=== PATIENT | male | born 1935 | race Caucasian/White ===

== ENCOUNTER 2021-08-21 13:07 | Inpatient (IN) | payer MEDICARE, OTHER ==
[2021-08-21] MEDS ORDERED: Sodium Chloride 0.9% 10 ML Syringe FLUSH PRN (13:44)
--- NOTE | 2021-08-21 13:44 | CT ---
[id number] CT/CT Head Stroke Protocol EXAM: CT Head Stroke Protocol CLINICAL DATA: STROKE PROTOCOL COMPARISON STUDY: None FINDINGS: Area of hypodensity within the left frontal lobe with loss of sharma-white matter differentiation. No acute hemorrhage. Generalized parenchymal atrophy with scattered areas of nonspecific white matter disease, commonly seen as sequela of chronic microvascular ischemia. Soft tissues are unremarkable. Paranasal sinuses and mastoid air cells are clear. IMPRESSION: Area of hypodensity within the left frontal lobe. Findings are likely commercial representative of a subacute infarct. Underlying mass with associated edema is not excluded. MRI of the brain with contrast is recommended for further evaluation. Ebenezer Hall DO 08/21/21 [id number] Thank you for allowing us to participate in the care of your patient.
[2021-08-21 14:51] LABS: PTT,PARTIAL THROMBOPLSTIN TIME 29.9 SEC (22.8-31.4)
--- NOTE | 2021-08-21 14:57 | EDM.PDOC ---
ED HPI GENERAL MEDICAL PROBLEM - General Chief Complaint: Neuro Symptoms/Deficits Stated Complaint: STROKE SYMPTOMS Time Seen by Provider: 08/21/21 13:10 Source of Information: Reports: EMS, Family (daughter Laurel, telephone conversation) History Limitations: Reports: Altered Mental Status (confusion, expressive dysphagia) - History of Present Illness INITIAL COMMENTS - FREE TEXT/NARRATIVE: 85-year-old male is brought in by EMS at approximately 1307 today for evaluation for probable CVA. [employer] was dispatched after daughter made a call stating that her father did not answer the phone yesterday and talked with him today and was not able to complete sentences with word salad and confusion. EMS arrived at the patient's house where he was in the kitchen. He was confused with expressive dysphagia and was brought in to the ER for further evaluation. Daughter stated that she was able to talk to her father on Tuesday. He had stated that he had not felt good since Tuesday and thought he was coming down with a cold. She followed up with a phone call on with no response. Today when he called and was confused and was unable to complete sentences she notified the authorities. His past medical history is significant for hyperlipidemia, hypertension, BPH. He is a history of 1 pack a day for 35 years cigarettes. Drinking history from his chart was noted 20 drinks weekly, totaling 10 beers and 10 shots of whiskey per week. Patient's this past November. He lives at home alone at this time. EMS noticed that the house was in disarray with molded food on the stove. The patient was alert but confused. Onset: Unknown/Unsure Duration: Hour(s):, Day(s): Location: Reports: Generalized Quality: Reports: Other (expressive ) Severity: Moderate Improves with: Reports: None Worsens with: Reports: None Associated Symptoms: Reports: Confusion. 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 - Related Data Allergies Allergy/AdvReac Type Severity Reaction Status Date / Time No Known Allergies Allergy Verified 08/21/21 13:31 Home Meds: Home Meds Simvastatin 20 mg PO DAILY 08/21/21 [History] Tamsulosin HCl [Flomax] 0.4 mg PO DAILY 08/21/21 [History] lisinopriL [Lisinopril] 10 mg PO DAILY 08/21/21 [History] Past Medical History HEENT History: Reports: None Cardiovascular History: Reports: Hypertension Respiratory History: Reports: None Gastrointestinal History: Reports: None Genitourinary History: Reports: BPH Musculoskeletal History: Reports: Arthritis Neurological History: Reports: None Psychiatric History: Reports: None Endocrine/Metabolic History: Reports: None Hematologic History: Reports: None Immunologic History: Reports: None Oncologic (Cancer) History: Reports: None Dermatologic History: Reports: Eczema - Past Surgical History Head Surgeries/Procedures: Reports: None Social & Family History - Tobacco Use Tobacco Use Status *Q: Never Tobacco User - Caffeine Use Caffeine Use: Reports: None - Recreational Drug Use Recreational Drug Use: No ED ROS GENERAL - Review of Systems Review Of Systems: See Below Constitutional: Reports: No Symptoms HEENT: Reports: No Symptoms Respiratory: Denies: Shortness of Breath, Cough Cardiovascular: Reports: Blood Pressure Problem. Denies: Chest Pain, Dyspnea on Exertion, Edema Endocrine: Reports: No Symptoms GI/Abdominal: Reports: No Symptoms : Reports: No Symptoms Musculoskeletal: Reports: No Symptoms Skin: Reports: No Symptoms Neurological: Reports: Confusion, Trouble Speaking, Change in Speech. Denies: Headache, Numbness, Paresthesia, Seizure, Syncope Psychiatric: Reports: Agitation, Confusion Hematologic/Lymphatic: Reports: No Symptoms Immunologic: Reports: No Symptoms ED EXAM, NEURO - Physical Exam Exam: See Below Exam Limited By: Altered Mental Status General Appearance: Alert, WD/WN, No Apparent Distress Eye Exam: Bilateral Eye: EOMI, PERRL Ears: Normal Canal Nose: Normal Inspection Throat/Mouth: Normal Inspection, No Airway Compromise, Other (Word scramble) Head Exam: Atraumatic, Normocephalic Neck: Normal Inspection, Supple, Non-Tender, Full Range of Motion Respiratory/Chest: No Respiratory Distress, Lungs Clear, Normal Breath Sounds, No Accessory Muscle Use, Chest Non-Tender Cardiovascular: Normal Peripheral Pulses, Regular Rate, Rhythm GI/Abdominal: Normal Bowel Sounds, Soft, Non-Tender Neurological: Alert, No Motor/Sensory Deficits. No: Oriented x 3 (Patient is not oriented to person, time, place) Back Exam: Normal Inspection Extremities: Normal Inspection, Normal Range of Motion, Limited Range of Motion (Left shoulder) Psychiatric: Other (Mild agitation) Skin Exam: Warm, Dry, Intact, Normal Color, No Rash #1 Interpretation EKG Date: 08/21/21 Time: 13:21 Rhythm: NSR Rate (Beats/Min): 78 [place]: Normal P-Wave: Present QRS: RBBB ST-T: Normal QT: Normal Comparison: NA - No Prior EKG EKG Interpretation Comments: Normal sinus rhythm Right bundle branch block Abnormal ECG Course - Vital Signs Last Recorded V/S: Last Vital Signs Temp 97.6 F 08/21/21 13:10 Pulse 74 08/21/21 15:36 Resp 20 08/21/21 15:36 BP 133/98 H 08/21/21 15:36 Pulse Ox 100 08/21/21 15:36 - Orders/Labs/Meds Orders: Active Orders 24 hr Category Date Time Status Peripheral IV Care [RC] . DIRECTED Care 08/21/21 13:44 Active Nothing Per Oral Diet [DIET] Diet 08/21/21 Dinner Active CTA Neck W & W/O Contrast [Ang Neck] [CT] Stat Exams 08/21/21 14:22 Ordered CORONAVIRUS COVID-19 RAPID [MOLEC] Urgent Lab 08/21/21 16:16 Ordered CULTURE BLOOD [BC] Stat Lab 08/21/21 16:17 Ordered CULTURE BLOOD [BC] Stat Lab 08/21/21 16:17 Ordered LACTIC ACID [CHEM] Stat Lab 08/21/21 16:18 Ordered Sodium Chloride 0.9% [Normal Saline] 1,000 ml Med 08/21/21 15:30 Active IV .BOLUS Sodium Chloride 0.9% [Normal Saline] 50 ml Med 08/21/21 15:45 Active IV ASDIRECTED Sodium Chloride 0.9% [Saline Flush] Med 08/21/21 13:44 Active 10 ml FLUSH Q8HR PRN Blood Culture x2 Reflex Set [OM.PC] Stat Oth 08/21/21 16:17 Ordered Peripheral IV Insertion Adult [OM.PC] Routine Oth 08/21/21 13:44 Ordered EKG 12 Lead [EK] Stat Ther 08/21/21 13:43 Ordered Medication Orders Sodium Chloride (Normal Saline) 50 mls @ 200 mls/min IV ASDIRECTED JAVIER Last Admin: 08/21/21 15:35 Dose: 200 mls/min Documented by: ENDECAY Sodium Chloride (Normal Saline) 1,000 mls @ 150 mls/hr IV .BOLUS ONE Stop: 08/21/21 22:09 Last Admin: 08/21/21 15:44 Dose: 150 mls/hr Documented by: CADE Sodium Chloride (Sodium Chloride 0.9% 10 Ml Syringe) 10 ml FLUSH Q8HR PRN PRN Reason: keep vein open Labs: Laboratory Tests 08/21/21 08/21/21 08/21/21 Range/Units 13:30 13:30 14:25 WBC 23.32 H (5.00-10.00) 10^3/uL RBC 3.57 L (4.50-6.00) 10^6/uL Hgb 11.5 L (13.0-17.0) g/dL Hct 33.4 L (40.0-52.0) % MCV 93.6 H (82.0-92.0) fL MCH 32.2 H (27.0-31.0) pg MCHC 34.4 (32.0-36.0) g/dL RDW 13.0 (11.5-14.5) % Plt Count 460 H (150-400) 10^3/uL MPV 8.5 (7.4-10.4) fL Immature Gran % (Auto) 0.6 (0.0-5.0) % Neut % (Auto) 84.6 H (50.0-70.0) % Lymph % (Auto) 5.0 L (20.0-40.0) % [place] % (Auto) 9.5 H (2.0-8.0) % Eos % (Auto) 0.2 L (1.0-3.0) % Baso % (Auto) 0.1 (0.0-1.0) % Neut # (Auto) 19.73 H (2.50-7.00) 10^3/uL Lymph # (Auto) 1.17 (1.00-4.00) 10^3/uL [place] # (Auto) 2.22 H (0.10-0.80) 10^3/uL Eos # (Auto) 0.04 L (0.10-0.30) 10^3/uL Baso # (Auto) 0.03 (0.00-0.10) 10^3/uL Immature Gran # (Auto) 0.13 (0.00-0.50) 10^3/uL PT 12.6 H (9.2-11.2) SEC INR 1.3 H (0.9-1.1) APTT 29.9 (22.8-31.4) SEC Sodium 133 L (136-145) mmol/L Potassium 5.3 H (3.5-5.1) mmol/L Chloride 96 L (98-107) mmol/L Carbon Dioxide 21.0 (21.0-32.0) mmol/L Anion Gap 21.3 H (5-15) mmol/L BUN 35 H (7-18) mg/dL Creatinine 1.26 H (0.51-1.17) mg/dL Est Cr Clr Drug Dosing TNP Estimated GFR (MDRD) 55 mL/min Glucose 104 (70-140) mg/dL Calcium 9.5 (8.7-10.3) mg/dL Total Bilirubin 0.5 (0.2-1.0) mg/dL AST 27 (15-37) U/L ALT 60 (14-63) U/L Alkaline Phosphatase 215 H (46-116) U/L Troponin I High Sens 493.600 H* (0-76.000) pg/mL Total Protein 7.9 (6.4-8.2) g/dL Albumin 3.28 L (3.40-5.00) g/dL Ethyl Alcohol < 3 H (NOT DETECTED) mg/dL Meds: Medications Generic Name Dose Route Start Last Admin Trade Name Freq PRN Reason Stop Dose Admin Sodium Chloride 50 mls @ 200 mls/min 08/21/21 15:45 08/21/21 15:35 Normal Saline IV 200 mls/min ASDIRECTED JAVIER Administration Sodium Chloride 1,000 mls @ 150 mls/hr 08/21/21 15:30 08/21/21 15:44 Normal Saline IV 08/21/21 22:09 150 mls/hr .BOLUS ONE Administration Sodium Chloride 10 ml 08/21/21 13:44 Sodium Chloride 0.9% 10 Ml Syringe FLUSH Q8HR PRN keep vein open Discontinued Medications Generic Name Dose Route Start Last Admin Trade Name Freq PRN Reason Stop Dose Admin Aspirin 324 mg 08/21/21 15:43 08/21/21 15:44 Aspirin 81 Mg Tab.Chew PO 08/21/21 15:44 324 mg ONETIME ONE Administration Iopamidol 100 ml 08/21/21 15:34 08/21/21 15:35 Iopamidol 755 Mg/Ml 100 Ml Bottle IV 08/21/21 15:35 100 ml ONETIME ONE Administration - Radiology Interpretation Free Text/Narrative:: CT head stroke protocol Findings: Area of hypodensity within the left frontal lobe with loss of sharma-white matter differentiation. No acute hemorrhage. Generalized paronychial atrophy with scattered area of nonspecific white matter disease, commonly seen as sequela of chronic microvascular ischemia Soft tissues are unremarkable. Paraspinal sinuses and mastoid air cells are clear. Impression: Area of hypodensity within the left frontal lobe. Findings are likely event sales representative of a subacute infarct. Underlying mass with associated edema is not excluded. MRI of the brain with contrast is recommended for further evaluation. Chest PA and lateral Indication: Confusion/CVA/elevated WBC Discussion/impression: Scattered linear opacities in the bilateral mid and lower lungs. Appearance is nonspecific. There is clinical signs of infection, findings could represent developing pneumonia, including sequela of Covid 19. No pleural effusion or pneumothorax CT CTA head and neck: Discussion: See radiology report Impression: No large vessel occlusion in the brain. No carotid stenosis. No abnormal enhancement of the left frontal lobe paronychial hypodensity seen on CT from today. Findings on CT are most consistent with evolving subacute infarction. MRI of the brain with and without contrast is recommended. Abnormal subpleural or mediastinal left upper lobe paronychial opacity extending beyond the [id number] on this examination. CT examination of the chest is with or without is recommended. CT Results Date: 08/21/21 CT Results Time: 13:38 - Re-Assessments/Exams Free Text/Narrative Re-Assessment/Exam: 08/21/21 15:06 NIH stroke scale 8 Patient is alert, patient is less agitated, patient is able to follow commands, patient still has expressive dysphagia. Free Text/Narrative Re-Assessment/Exam: 08/21/[address]Mutgi Sommers [address] [place] [address], [address] and discussed the findings with physician. Recommendation for CTA of the head and neck. And continue with palliative care at this time. Free Text/Narrative Re-Assessment/Exam: 08/21/21 1440 Telephone call was made out to patient's family member daughter Laurel who lives in [place]. Discussion of findings on the CT were discussed with the daughter. She has a brother that lives near the area of [place] and will be arriving. We have discussed CODE STATUS which the patient has in his directive he is a DNR. 08/21/21 16:55 Patient is more responsive to questioning. He did get up abruptly on his own unfortunately had dislodged his IV and was bleeding on the floor and went to the bathroom. Nursing staff accompanied him back to the bed. Patient reports no increased pain discomfort no chest pain. Agitation is resolved. Departure - Departure Time of Disposition: 17:07 Disposition: Admitted As Inpatient 68 Condition: Fair Clinical Impression: Non-ST elevated myocardial infarction (non-STEMI), Neutrophilic leukocytosis CVA (cerebral vascular accident) Qualifiers: CVA mechanism: unspecified Qualified Code(s): I63.9 - Cerebral infarction, unspecified - Discharge Information Referrals: Carolyne Goyal MD [Primary Care Provider] - Forms: ED Department Discharge Sepsis Event Note (ED) - Focused Exam Vital Signs: Vital Signs Temp Pulse Resp BP Pulse Ox 08/21/21 15:36 74 20 133/98 H 100 08/21/21 13:10 97.6 F 78 16 158/96 H 100 - My Orders Last 24 Hours: My Active Orders 08/21/21 13:43 EKG 12 Lead [EK] Stat 08/21/21 13:44 Peripheral IV Care [RC] . DIRECTED Sodium Chloride 0.9% [Saline Flush] 10 ml FLUSH Q8HR PRN Peripheral IV Insertion Adult [OM.PC] Routine 08/21/21 14:22 CTA Neck W & W/O Contrast [Ang Neck] [CT] Stat 08/21/21 15:30 Sodium Chloride 0.9% [Normal Saline] 1,000 ml IV .BOLUS 08/21/21 15:45 Sodium Chloride 0.9% [Normal Saline] 50 ml IV ASDIRECTED 08/21/21 16:16 CORONAVIRUS COVID-19 RAPID [MOLEC] Urgent 08/21/21 16:17 CULTURE BLOOD [BC] Stat CULTURE BLOOD [BC] Stat Blood Culture x2 Reflex Set [OM.PC] Stat 08/21/21 16:18 LACTIC ACID [CHEM] Stat 08/21/21 Dinner Nothing Per Oral Diet [DIET] - Assessment/Plan Last 24 Hours: My Active Orders 08/21/21 13:43 EKG 12 Lead [EK] Stat 08/21/21 13:44 Peripheral IV Care [RC] . 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 Leukocytosis with left shift. Possibly developing pneumonia, including sequela of COVID-19. Critical troponin levels, non-ST elevated DC Plan: 1. Interventional neurology was consulted, [address] Recommendation for CTA head and neck. Continue with palliative care. 2. Patient and family desire noninvasive management for his CVA and elevated troponin.. 3. Patient will be admitted inpatient, telemetry for palliative care for his CVA, non-ST elevated DC, further work-up for leukocytosis with shift. 4. Lactic acid, UA, blood cultures pending. 5. Covid test pending. 6. Patient will likely need long-term retirement placement with possible hospice. 7. provider will take over patient's inpatient care and has been accepted.
[2021-08-21 15:29] LABS: ANION GAP 21.3 mmol/L (5-15); CHLORIDE,CL 96 mmol/L (98-107); SODIUM,NA 133 mmol/L (136-145)
[2021-08-21] MEDS ORDERED: Sodium Chloride 0.9% 1,000 ML IV ONE (15:30)
[2021-08-21] MEDS ORDERED: Iopamidol 755 Mg/ML 100 ML Bottle IV ONE (15:34)
[2021-08-21] MEDS ORDERED: Aspirin 81 MG Tab.Chew PO ONE (15:43)
[2021-08-21] MEDS ORDERED: Sodium Chloride 0.9% 50 ML IV SCH (15:45)
--- NOTE | 2021-08-21 15:46 | CT ---
[id number] CT/CTA Head Neck EXAM: CT angiogram head and neck INDICATION: CVA COMPARISON: CT from today at 1307 hours. DISCUSSION: Aortic arch: The partially imaged aortic arch is normal in caliber with a conventional branching morphology. Right carotid artery: Normal in caliber. No significant stenosis or other abnormality. Left carotid artery: Normal in caliber. No significant stenosis or other abnormality. Right vertebral artery: Normal in caliber. No significant stenosis or other abnormality. Left vertebral artery: Normal in caliber. No significant stenosis or other abnormality. Basilar artery: Normal in caliber. No significant stenosis or other abnormality. [place]: origin of the right posterior cerebral artery, normal variant. No large vessel occlusion in the brain. No high-grade stenosis or aneurysm. Dural sinuses, jugular veins and cerebral veins: Limited evaluation of the cerebral veins, dural sinuses and jugular veins is unremarkable. Brain parenchyma: No abnormal enhancement within area of parenchymal hypodensity in the left frontal lobe seen on noncontrast CT from today. Appearance is not consistent with a mass. of the left upper lobe extending beyond the field of view of this examination. Emphysematous changes in the lung apices. Neck soft tissues: Unremarkable. Osseous structures: Advanced changes of spondylosis throughout the cervical spine. Degenerative anterolisthesis at C4 over C5. IMPRESSION: No large vessel occlusion in the brain. No carotid stenosis. No abnormal enhancement of left frontal lobe parenchymal hypodensity seen on CT from today. Findings on CT are most consistent with evolving subacute infarction. MRI of the brain with and without contrast is recommended. Abnormal subpleural or mediastinal left upper lobe parenchymal opacity extending beyond the field of view of this examination. CT examination of the chest is with or without is recommended. Arnaud Devi MD 08/21/21 5101 Thank you for allowing us to participate in the care of your patient.
--- NOTE | 2021-08-21 16:23 | CR ---
[id number] RAD/RAD Chest PA And Lateral EXAM: RAD Chest PA And Lateral INDICATION: CONFUSION/CVA/ELEVATED WBC COMPARISON: None. DISCUSSION/IMPRESSION: Cardiomegaly and central vascular congestion. Scattered linear opacities in the bilateral mid and lower lungs. Appearance is nonspecific. If there are clinical signs of infection, findings could represent developing pneumonia, including sequela of COVID 19. No pleural effusion or pneumothorax. Arnaud Devi MD 08/21/21 3422 Thank you for allowing us to participate in the care of your patient.
--- NOTE | 2021-08-21 17:59 | PCM.HP.2 ---
H&P History of Present Illness - General Date of Service: 08/21/21 Admit Problem/Dx: Admission Diagnosis/Problem Admission Diagnosis/Problem CVA, Cerebrovascular accident - Related Data Allergies/Adverse Reactions: Allergies Allergy/AdvReac Type Severity Reaction Status Date / Time No Known Allergies Allergy Verified 08/21/21 13:31 Home Medications: Home Meds Simvastatin 20 mg PO DAILY 08/21/21 [History] Tamsulosin HCl [Flomax] 0.4 mg PO DAILY 08/21/21 [History] lisinopriL [Lisinopril] 10 mg PO DAILY 08/21/21 [History] Past Medical History HEENT History: Reports: None Cardiovascular History: Reports: Hypertension Respiratory History: Reports: None Gastrointestinal History: Reports: None Genitourinary History: Reports: BPH Musculoskeletal History: Reports: Arthritis Neurological History: Reports: None Psychiatric History: Reports: None Endocrine/Metabolic History: Reports: None Hematologic History: Reports: None Immunologic History: Reports: None Oncologic (Cancer) History: Reports: None Dermatologic History: Reports: Eczema - Past Surgical History Head Surgeries/Procedures: Reports: None Social & Family History - Tobacco Use Tobacco Use Status *Q: Never Tobacco User - Caffeine Use Caffeine Use: Reports: None - Recreational Drug Use Recreational Drug Use: No H&P Review of Systems - Review of Systems: Review Of Systems: See Below Free Text/Narrative: Difficulty obtaining complete ROS due to expressive aphasia General: Reports: Weakness HEENT: Reports: No Symptoms Pulmonary: Reports: Shortness of Breath, Cough Neurological: Reports: Trouble Speaking (expressive aphasia), Weakness (L upper extremity) Exam - Exam Exam: See Below - Vital Signs Vital Signs: Last Vital Signs Temp 97.5 F 08/21/21 17:55 Pulse 80 08/21/21 17:55 Resp 20 08/21/21 17:55 BP 151/77 H 08/21/21 17:55 Pulse Ox 98 08/21/21 17:55 - Exam Quality Assessment: Supplemental Oxygen General: Cooperative HEENT: Mucosa Moist & [place] Neck: Supple, Trachea Midline Lungs: Decreased Breath Sounds, Crackles, Rhonchi. No: Wheezing Cardiovascular: Regular Rate, Regular Rhythm. No: Systolic Murmur GI/Abdominal Exam: Normal Bowel Sounds, Soft, Non-Tender (Male) Exam: Deferred Rectal (Males) Exam: Deferred Extremities: Non-Tender, No Pedal Edema, Normal Capillary Refill, Other (left upper extremity weakness 4/5) Peripheral Pulses: 2+: Dorsalis Pedis (L), Dorsalis Pedis (R) Skin: Warm, Dry, Intact Neuro Extensive - Mental Status: Alert Neuro Extensive - Motor, Sensory, Reflexes: Expressive Aphasia - Patient Data Lab Results Last 24 hrs: Laboratory Results - last 24 hr 08/21/21 08/21/21 08/21/21 Range/Units 13:30 13:30 14:25 WBC 23.32 H (5.00-10.00) 10^3/uL RBC 3.57 L (4.50-6.00) 10^6/uL Hgb 11.5 L (13.0-17.0) g/dL Hct 33.4 L (40.0-52.0) % MCV 93.6 H (82.0-92.0) fL MCH 32.2 H (27.0-31.0) pg MCHC 34.4 (32.0-36.0) g/dL RDW 13.0 (11.5-14.5) % Plt Count 460 H (150-400) 10^3/uL MPV 8.5 (7.4-10.4) fL Immature Gran % (Auto) 0.6 (0.0-5.0) % Neut % (Auto) 84.6 H (50.0-70.0) % Lymph % (Auto) 5.0 L (20.0-40.0) % Yell % (Auto) 9.5 H (2.0-8.0) % Eos % (Auto) 0.2 L (1.0-3.0) % Baso % (Auto) 0.1 (0.0-1.0) % Neut # (Auto) 19.73 H (2.50-7.00) 10^3/uL Lymph # (Auto) 1.17 (1.00-4.00) 10^3/uL Yell # (Auto) 2.22 H (0.10-0.80) 10^3/uL Eos # (Auto) 0.04 L (0.10-0.30) 10^3/uL Baso # (Auto) 0.03 (0.00-0.10) 10^3/uL Immature Gran # (Auto) 0.13 (0.00-0.50) 10^3/uL PT 12.6 H (9.2-11.2) SEC INR 1.3 H (0.9-1.1) APTT 29.9 (22.8-31.4) SEC Sodium 133 L (136-145) mmol/L Potassium 5.3 H (3.5-5.1) mmol/L Chloride 96 L (98-107) mmol/L Carbon Dioxide 21.0 (21.0-32.0) mmol/L Anion Gap 21.3 H (5-15) mmol/L BUN 35 H (7-18) mg/dL Creatinine 1.26 H (0.51-1.17) mg/dL Est Cr Clr Drug Dosing TNP Estimated GFR (MDRD) 55 mL/min Glucose 104 (70-140) mg/dL Lactic Acid (0.4-2.0) mmol/L Calcium 9.5 (8.7-10.3) mg/dL Total Bilirubin 0.5 (0.2-1.0) mg/dL AST 27 (15-37) U/L ALT 60 (14-63) U/L Alkaline Phosphatase 215 H (46-116) U/L Troponin I High Sens 493.600 H* (0-76.000) pg/mL Total Protein 7.9 (6.4-8.2) g/dL Albumin 3.28 L (3.40-5.00) g/dL Ethyl Alcohol < 3 H (NOT DETECTED) mg/dL SARS CoV-2 RNA Rapid BRUNILDA (NEGATIVE) 08/21/21 08/21/21 Range/Units 16:40 16:50 WBC (5.00-10.00) 10^3/uL RBC (4.50-6.00) 10^6/uL Hgb (13.0-17.0) g/dL Hct (40.0-52.0) % MCV (82.0-92.0) fL MCH (27.0-31.0) pg MCHC (32.0-36.0) g/dL RDW (11.5-14.5) % Plt Count (150-400) 10^3/uL MPV (7.4-10.4) fL Immature Gran % (Auto) (0.0-5.0) % Neut % (Auto) (50.0-70.0) % Lymph % (Auto) (20.0-40.0) % Yell % (Auto) (2.0-8.0) % Eos % (Auto) (1.0-3.0) % Baso % (Auto) (0.0-1.0) % Neut # (Auto) (2.50-7.00) 10^3/uL Lymph # (Auto) (1.00-4.00) 10^3/uL Yell # (Auto) (0.10-0.80) 10^3/uL Eos # (Auto) (0.10-0.30) 10^3/uL Baso # (Auto) (0.00-0.10) 10^3/uL Immature Gran # (Auto) (0.00-0.50) 10^3/uL PT (9.2-11.2) SEC INR (0.9-1.1) APTT (22.8-31.4) SEC Sodium (136-145) mmol/L Potassium (3.5-5.1) mmol/L Chloride (98-107) mmol/L Carbon Dioxide (21.0-32.0) mmol/L Anion Gap (5-15) mmol/L BUN (7-18) mg/dL Creatinine (0.51-1.17) mg/dL Est Cr Clr Drug Dosing Estimated GFR (MDRD) mL/min Glucose (70-140) mg/dL Lactic Acid 2.2 H (0.4-2.0) mmol/L Calcium (8.7-10.3) mg/dL Total Bilirubin (0.2-1.0) mg/dL AST (15-37) U/L ALT (14-63) U/L Alkaline Phosphatase (46-116) U/L Troponin I High Sens (0-76.000) pg/mL Total Protein (6.4-8.2) g/dL Albumin (3.40-5.00) g/dL Ethyl Alcohol (NOT DETECTED) mg/dL SARS CoV-2 RNA Rapid BRUNILDA Negative (NEGATIVE) Result Diagrams: 08/21/21 13:30 08/21/21 13:30 Sepsis Event Note - Focused Exam Vital Signs: Vital Signs Temp Pulse Resp BP Pulse Ox Pulse Ox 08/21/21 17:55 97.5 F 80 20 151/77 H 98 08/21/21 17:16 98.4 F 80 20 161/95 H 97 08/21/21 17:12 80 20 154/91 H 96 08/21/21 17:10 98 08/21/21 16:00 71 18 97 08/21/21 15:36 74 20 133/98 H 100 08/21/21 13:10 97.6 F 78 16 158/96 H 100 Problem List Initiated/Reviewed/Updated: Yes Orders Last 24hrs: Active Orders 24 hr Category Date Time Status Patient Status [ADT] Routine ADT 08/21/21 17:10 Active Oxygen Therapy [RC] PRN Care 08/21/21 17:10 Active Peripheral IV Care [RC] . DIRECTED Care 08/21/21 13:44 Active VTE/DVT Education [RC] PER UNIT ROUTINE Care 08/21/21 17:10 Active Vital Signs [RC] Q4H Care 08/21/21 17:10 Active Nothing Per Oral Diet [DIET] Diet 08/21/21 Dinner Active CTA Neck W & W/O Contrast [Ang Neck] [CT] Stat Exams 08/21/21 14:22 Ordered CULTURE BLOOD [BC] Stat Lab 08/21/21 16:40 Received CULTURE BLOOD [BC] Stat Lab 08/21/21 16:50 Received Sodium Chloride 0.9% [Normal Saline] 1,000 ml Med 08/21/21 15:30 Active IV .BOLUS Sodium Chloride 0.9% [Normal Saline] 50 ml Med 08/21/21 15:45 Active IV ASDIRECTED Sodium Chloride 0.9% [Saline Flush] Med 08/21/21 13:44 Active 10 ml FLUSH Q8HR PRN Blood Culture x2 Reflex Set [OM.PC] Stat Oth 08/21/21 16:17 Ordered Peripheral IV Insertion Adult [OM.PC] Routine Oth 08/21/21 13:44 Ordered Resuscitation Status Routine Resus Stat 08/21/21 17:10 Ordered EKG 12 Lead [EK] Stat Ther 08/21/21 13:43 Ordered Medication Orders Sodium Chloride (Normal Saline) 50 mls @ 200 mls/min IV ASDIRECTED JAVIER Last Admin: 08/21/21 15:35 Dose: 200 mls/min Documented by: SONIA Sodium Chloride (Normal Saline) 1,000 mls @ 150 mls/hr IV .BOLUS ONE Stop: 08/21/21 22:09 Last Admin: 08/21/21 15:44 Dose: 150 mls/hr Documented by: CADE Sodium Chloride (Sodium Chloride 0.9% 10 Ml Syringe) 10 ml FLUSH Q8HR PRN PRN Reason: keep vein open Assessment/Plan Comment:: HPI summary: Arthur is an 85yM patient brought to the ER today per EMS after highway patrol was dispatched to check on patient after his daughter had called him from [place] and reported patient was confused, unable to complete sentences with word salad and expressive aphasia. Daughter reported patient had complained of cold symptoms on Tuesday (08/17/21). Patient has 35 pack year history of smoking and drinks 20 alcoholic beverages on a weekly basis. Of note, EMS reported that the house was in disarray and moldy food was found on the stove. Patient's in November,. ED course: Patient confused, expressive aphasia and L sided weakness. NIH stroke scale = 8. WBC 23k, neutrophils 84.6%, Na 133, K 5.3, BUN 35, Creatinine 1.26, Alk phos 215. Trop 493. Lactic acid 2.2. CXR: cardiomegaly, vascular congestion; scattered linear opacities of bilateral mid, lower lungs suggestive of developing pneumonia. EKG: NSR w RBBB, no ST elevation. ASA 324mg given in ER. IV fluids started at 150ml/hr. [facility] neurology recommended palliative care for patient, declined admission. Hospital course: 08/21/21: Patient states "treat me" when clarifying code status for antibiotics, IV fluids versus comfort care. Expressive aphasia continues, mild left arm weakness. Vitals stable. Will trend troponin tonight. Initiating IV antibiotics for pneumonia. Tolerating thickened liquids and taking pills without difficulty. Hospitalization problems and plan: # NSTEMI - initial troponin 493; cardiomegaly/vascular congestion on CXR will obtain BNP. No echo on file. - Repeat troponin this evening 413; repeat at 2300 - Metoprolol 12.5mg PO daily - lovenox 60mg subq BID - BNP 171 this evening - IV fluid rate decreased from 150ml/hr to 50ml/hr - Oxygen 2 LPM NC for comfort - Cardiac monitoring # CVA - Head CT/CTA: Area of hypodensity L anterior frontal lobe with loss of white matter differentiation suggestive of subacute infarct; non-specific white matter disease - chronic microvascular ischemia - Allow for permissive hypertension - Thickened liquids - PT/OT evaluation and treatment # Pneumonia - WBC 23k, (84.6% neutrophils); CXR indicates scattered, linear opacities of the bilateral mid, lower lungs # Lactic acidosis - 2.2 in ER - Start levaquin 750mg IV daily - BC x 2 pending - Repeat lactic acid at 2300 - CBC in am Chronic, stable conditions: # Hypertension - on lisinopril 10mg (hold) # Hyperlipidemia - continue simvastatin 20mg PO # Benign prostatic hypertrophy - continue flomax 0.4mg PO daily # Tobacco dependence Hospitalization details: # FEN: NS 50ml/hr, stable electrolytes, thickened liquids # PPX: lovenox 60mg subq BID # Code status: DNR/DNI # Emergency contact: SonArnaud - updated at bedside this evening, informed him his father has three major medical concerns at this time and we will do the best we can to treat them. Condition rather guarded at this time. # Disposition: I anticipate > 2 midnights for treatment of pneumonia, NSTEMI and CVA. Patient admitted to inpatient status. Anticipate patient will likely need SNF upon discharge, will consult social insurance adviser for discharge planning, anticipate PT/OT eval on Tuesday08/24/21. - Mortality Measure Prognosis:: Poor (CVA, NSTEMI, Pneumonia)
[2021-08-21] MEDS ORDERED: Levofloxacin/Dextrose 5%-Water 500 MG in Premix Bag 1 BAG IV ONE (18:15)
[2021-08-21] MEDS: Metoprolol Succinate 25 MG Tab.ER PO SCH (19:17)
[2021-08-21] MEDS: Enoxaparin 60 MG/0.6 ML Syringe SUBCUT SCH (19:17)
[2021-08-21] MEDS ORDERED: Levofloxacin/Dextrose 5%-Water 250 MG in Premix Bag 1 BAG IV ONE (19:30)
[2021-08-21] MEDS: Tamsulosin 0.4 MG Cap.ER PO SCH (21:30)
[2021-08-21] MEDS: Simvastatin 20 MG Tab PO SCH (21:30)
[2021-08-22] MEDS: Enoxaparin 60 MG/0.6 ML Syringe SUBCUT SCH ×2 (06:20→17:45)
[2021-08-22] MEDS: Sodium Chloride 0.9% 1,000 ML IV SCH (07:17)
[2021-08-22 08:27] LABS: CHLORIDE,CL 103 mmol/L (98-107); SODIUM,NA 132 mmol/L (136-145)
[2021-08-22] MEDS: Metoprolol Succinate 25 MG Tab.ER PO SCH (08:43)
--- NOTE | 2021-08-22 10:24 | PCM.PN ---
- General Info Date of Service: 08/22/21 Subjective Update: Expressive aphasia continues, patient able to answer yes, no and some short phrases at times. Functional Status: Reports: Pain Controlled, Tolerating Diet (thickened liquids, pudding, cream of wheat), Urinating. Denies: New Symptoms - Patient Data Vitals - Most Recent: Last Vital Signs Temp 97.9 F 08/22/21 06:25 Pulse 89 08/22/21 08:43 Resp 24 H 08/22/21 06:25 BP 137/76 08/22/21 08:43 Pulse Ox 95 08/22/21 06:25 Weight - Most Recent: 139 lb 6.4 oz I&O - Last 24 Hours: Intake & Output 08/21/21 08/22/21 08/22/21 22:59 06:59 14:59 Intake Total 406 722 Output Total 0 250 Balance 406 472 Lab Results Last 24 Hours: Laboratory Results - last 24 hr 08/21/21 08/21/21 08/21/21 Range/Units 13:30 13:30 14:25 WBC 23.32 H (5.00-10.00) 10^3/uL RBC 3.57 L (4.50-6.00) 10^6/uL Hgb 11.5 L (13.0-17.0) g/dL Hct 33.4 L (40.0-52.0) % MCV 93.6 H (82.0-92.0) fL MCH 32.2 H (27.0-31.0) pg MCHC 34.4 (32.0-36.0) g/dL RDW 13.0 (11.5-14.5) % Plt Count 460 H (150-400) 10^3/uL MPV 8.5 (7.4-10.4) fL Immature Gran % (Auto) 0.6 (0.0-5.0) % Neut % (Auto) 84.6 H (50.0-70.0) % Lymph % (Auto) 5.0 L (20.0-40.0) % [place] % (Auto) 9.5 H (2.0-8.0) % Eos % (Auto) 0.2 L (1.0-3.0) % Baso % (Auto) 0.1 (0.0-1.0) % Neut # (Auto) 19.73 H (2.50-7.00) 10^3/uL Lymph # (Auto) 1.17 (1.00-4.00) 10^3/uL [place] # (Auto) 2.22 H (0.10-0.80) 10^3/uL Eos # (Auto) 0.04 L (0.10-0.30) 10^3/uL Baso # (Auto) 0.03 (0.00-0.10) 10^3/uL Immature Gran # (Auto) 0.13 (0.00-0.50) 10^3/uL PT 12.6 H (9.2-11.2) SEC INR 1.3 H (0.9-1.1) APTT 29.9 (22.8-31.4) SEC Sodium 133 L (136-145) mmol/L Potassium 5.3 H (3.5-5.1) mmol/L Chloride 96 L (98-107) mmol/L Carbon Dioxide 21.0 (21.0-32.0) mmol/L Anion Gap 21.3 H (5-15) mmol/L BUN 35 H (7-18) mg/dL Creatinine 1.26 H (0.51-1.17) mg/dL Est Cr Clr Drug Dosing TNP Estimated GFR (MDRD) 55 mL/min Glucose 104 (70-140) mg/dL Lactic Acid (0.4-2.0) mmol/L Calcium 9.5 (8.7-10.3) mg/dL Total Bilirubin 0.5 (0.2-1.0) mg/dL AST 27 (15-37) U/L ALT 60 (14-63) U/L Alkaline Phosphatase 215 H (46-116) U/L Troponin I High Sens 493.600 H* (0-76.000) pg/mL B-Natriuretic Peptide (0-100) pg/mL Total Protein 7.9 (6.4-8.2) g/dL Albumin 3.28 L (3.40-5.00) g/dL Ethyl Alcohol < 3 H (NOT DETECTED) mg/dL SARS CoV-2 RNA Rapid BRUNILDA (NEGATIVE) 08/21/21 08/21/21 08/21/21 Range/Units 16:40 16:50 18:35 WBC (5.00-10.00) 10^3/uL RBC (4.50-6.00) 10^6/uL Hgb (13.0-17.0) g/dL Hct (40.0-52.0) % MCV (82.0-92.0) fL MCH (27.0-31.0) pg MCHC (32.0-36.0) g/dL RDW (11.5-14.5) % Plt Count (150-400) 10^3/uL MPV (7.4-10.4) fL Immature Gran % (Auto) (0.0-5.0) % Neut % (Auto) (50.0-70.0) % Lymph % (Auto) (20.0-40.0) % [place] % (Auto) (2.0-8.0) % Eos % (Auto) (1.0-3.0) % Baso % (Auto) (0.0-1.0) % Neut # (Auto) (2.50-7.00) 10^3/uL Lymph # (Auto) (1.00-4.00) 10^3/uL [place] # (Auto) (0.10-0.80) 10^3/uL Eos # (Auto) (0.10-0.30) 10^3/uL Baso # (Auto) (0.00-0.10) 10^3/uL Immature Gran # (Auto) (0.00-0.50) 10^3/uL PT (9.2-11.2) SEC INR (0.9-1.1) APTT (22.8-31.4) SEC Sodium (136-145) mmol/L Potassium (3.5-5.1) mmol/L Chloride (98-107) mmol/L Carbon Dioxide (21.0-32.0) mmol/L Anion Gap (5-15) mmol/L BUN (7-18) mg/dL Creatinine (0.51-1.17) mg/dL Est Cr Clr Drug Dosing Estimated GFR (MDRD) mL/min Glucose (70-140) mg/dL Lactic Acid 2.2 H (0.4-2.0) mmol/L Calcium (8.7-10.3) mg/dL Total Bilirubin (0.2-1.0) mg/dL AST (15-37) U/L ALT (14-63) U/L Alkaline Phosphatase (46-116) U/L Troponin I High Sens (0-76.000) pg/mL B-Natriuretic Peptide 171 H (0-100) pg/mL Total Protein (6.4-8.2) g/dL Albumin (3.40-5.00) g/dL Ethyl Alcohol (NOT DETECTED) mg/dL SARS CoV-2 RNA Rapid BRUNILDA Negative (NEGATIVE) 08/21/21 08/21/21 08/21/21 Range/Units 18:35 22:55 22:55 WBC (5.00-10.00) 10^3/uL RBC (4.50-6.00) 10^6/uL Hgb (13.0-17.0) g/dL Hct (40.0-52.0) % MCV (82.0-92.0) fL MCH (27.0-31.0) pg MCHC (32.0-36.0) g/dL RDW (11.5-14.5) % Plt Count (150-400) 10^3/uL MPV (7.4-10.4) fL Immature Gran % (Auto) (0.0-5.0) % Neut % (Auto) (50.0-70.0) % Lymph % (Auto) (20.0-40.0) % [place] % (Auto) (2.0-8.0) % Eos % (Auto) (1.0-3.0) % Baso % (Auto) (0.0-1.0) % Neut # (Auto) (2.50-7.00) 10^3/uL Lymph # (Auto) (1.00-4.00) 10^3/uL [place] # (Auto) (0.10-0.80) 10^3/uL Eos # (Auto) (0.10-0.30) 10^3/uL Baso # (Auto) (0.00-0.10) 10^3/uL Immature Gran # (Auto) (0.00-0.50) 10^3/uL PT (9.2-11.2) SEC INR (0.9-1.1) APTT (22.8-31.4) SEC Sodium (136-145) mmol/L Potassium (3.5-5.1) mmol/L Chloride (98-107) mmol/L Carbon Dioxide (21.0-32.0) mmol/L Anion Gap (5-15) mmol/L BUN (7-18) mg/dL Creatinine (0.51-1.17) mg/dL Est Cr Clr Drug Dosing Estimated GFR (MDRD) mL/min Glucose (70-140) mg/dL Lactic Acid 0.7 (0.4-2.0) mmol/L Calcium (8.7-10.3) mg/dL Total Bilirubin (0.2-1.0) mg/dL AST (15-37) U/L ALT (14-63) U/L Alkaline Phosphatase (46-116) U/L Troponin I High Sens 413.300 H* 339.200 H* (0-76.000) pg/mL B-Natriuretic Peptide (0-100) pg/mL Total Protein (6.4-8.2) g/dL Albumin (3.40-5.00) g/dL Ethyl Alcohol (NOT DETECTED) mg/dL SARS CoV-2 RNA Rapid BRUNILDA (NEGATIVE) 08/22/21 08/22/21 Range/Units 07:20 07:20 WBC 15.17 H (5.00-10.00) 10^3/uL RBC 3.07 L (4.50-6.00) 10^6/uL Hgb 9.7 L D (13.0-17.0) g/dL Hct 28.9 L (40.0-52.0) % MCV 94.1 H (82.0-92.0) fL MCH 31.6 H (27.0-31.0) pg MCHC 33.6 (32.0-36.0) g/dL RDW 13.2 (11.5-14.5) % Plt Count 440 H (150-400) 10^3/uL MPV 8.6 (7.4-10.4) fL Immature Gran % (Auto) 0.5 (0.0-5.0) % Neut % (Auto) 83.8 H (50.0-70.0) % Lymph % (Auto) 4.2 L (20.0-40.0) % [place] % (Auto) 11.1 H (2.0-8.0) % Eos % (Auto) 0.2 L (1.0-3.0) % Baso % (Auto) 0.2 (0.0-1.0) % Neut # (Auto) 12.71 H (2.50-7.00) 10^3/uL Lymph # (Auto) 0.64 L (1.00-4.00) 10^3/uL [place] # (Auto) 1.68 H (0.10-0.80) 10^3/uL Eos # (Auto) 0.03 L (0.10-0.30) 10^3/uL Baso # (Auto) 0.03 (0.00-0.10) 10^3/uL Immature Gran # (Auto) 0.08 (0.00-0.50) 10^3/uL PT (9.2-11.2) SEC INR (0.9-1.1) APTT (22.8-31.4) SEC Sodium 132 L (136-145) mmol/L Potassium 4.9 (3.5-5.1) mmol/L Chloride 103 (98-107) mmol/L Carbon Dioxide 18.9 L (21.0-32.0) mmol/L Anion Gap 15.0 (5-15) mmol/L BUN 29 H (7-18) mg/dL Creatinine 1.04 (0.51-1.17) mg/dL Est Cr Clr Drug Dosing 48.13 Estimated GFR (MDRD) > 60 mL/min Glucose 90 (70-140) mg/dL Lactic Acid (0.4-2.0) mmol/L Calcium 8.5 L (8.7-10.3) mg/dL Total Bilirubin 0.6 (0.2-1.0) mg/dL AST 23 (15-37) U/L ALT 49 (14-63) U/L Alkaline Phosphatase 181 H (46-116) U/L Troponin I High Sens (0-76.000) pg/mL B-Natriuretic Peptide (0-100) pg/mL Total Protein 6.5 (6.4-8.2) g/dL Albumin 2.58 L (3.40-5.00) g/dL Ethyl Alcohol (NOT DETECTED) mg/dL SARS CoV-2 RNA Rapid BRUNILDA (NEGATIVE) Med Orders - Current: Current Medications Enoxaparin Sodium (Enoxaparin 60 Mg/0.6 Ml Syringe) 60 mg SUBCUT Q12H [facility] Last Admin: 08/22/21 06:20 Dose: 60 mg Documented by: Sodium Chloride (Normal Saline) 1,000 mls @ 50 mls/hr IV ASDIRECTED [facility] Last Admin: 08/22/21 07:17 Dose: 50 mls/hr Documented by: Levofloxacin/Dextrose 500 mg/ (Premix) 100 mls @ 100 mls/hr IV Q48H JAVIER Levofloxacin/Dextrose 250 mg/ (Premix) 50 mls @ 50 mls/hr IV Q48H JAVIER Metoprolol Succinate (Metoprolol Succinate 25 Mg Tab.Er) 12.5 mg PO DAILY [facility] Last Admin: 08/22/21 08:43 Dose: 12.5 mg Documented by: Simvastatin (Simvastatin 20 Mg Tab) 20 mg PO BEDTIME [facility] Last Admin: 08/21/21 21:30 Dose: 20 mg Documented by: Sodium Chloride (Sodium Chloride 0.9% 10 Ml Syringe) 10 ml FLUSH Q8HR PRN PRN Reason: keep vein open Tamsulosin HCl (Tamsulosin 0.4 Mg Cap.Er) 0.4 mg PO BEDTIME [facility] Last Admin: 08/21/21 21:30 Dose: 0.4 mg Documented by: Discontinued Medications Aspirin (Aspirin 81 Mg Tab.Chew) 324 mg PO ONETIME ONE Stop: 08/21/21 15:44 Last Admin: 08/21/21 15:44 Dose: 324 mg Documented by: Sodium Chloride (Normal Saline) 50 mls @ 200 mls/min IV ASDIRECTED [facility] Last Admin: 08/21/21 15:35 Dose: 200 mls/min Documented by: Sodium Chloride (Normal Saline) 1,000 mls @ 150 mls/hr IV .BOLUS ONE Stop: 08/21/21 22:09 Last Infusion: 08/21/21 20:30 Dose: 50 mls/hr Documented by: Levofloxacin/Dextrose 250 mg/ (Premix) 50 mls @ 50 mls/hr IV Q24H JAVIER Levofloxacin/Dextrose 500 mg/ (Premix) 100 mls @ 100 mls/hr IV NOW ONE Stop: 08/21/21 19:14 Last Admin: 08/21/21 19:14 Dose: 100 mls/hr Documented by: Levofloxacin/Dextrose 250 mg/ (Premix) 50 mls @ 50 mls/hr IV ONETIME ONE Stop: 08/21/21 20:29 Last Admin: 08/21/21 20:31 Dose: 50 mls/hr Documented by: Iopamidol (Iopamidol 755 Mg/Ml 100 Ml Bottle) 100 ml IV ONETIME ONE Stop: 08/21/21 15:35 Last Admin: 08/21/21 15:35 Dose: 100 ml Documented by: - Exam Quality Assessment: DVT Prophylaxis. No: Supplemental Oxygen, Urine Catheter General: Alert, Cooperative, No Acute Distress HEENT: Pupils Equal, Pupils Reactive, Mucous Membr. Moist/[place] Neck: Supple Lungs: Decreased Breath Sounds, Crackles (fine). No: Rhonchi, Wheezing Cardiovascular: Regular Rate, Regular Rhythm, No Murmurs GI/Abdominal Exam: Normal Bowel Sounds, Soft, Non-Tender, No Distention (Male) Exam: Deferred Back Exam: Normal Inspection Extremities: Normal Inspection, Non-Tender, No Pedal Edema, Normal Capillary Refill, Other (Left arm weakness, improved from last night) Peripheral Pulses: 2+: Dorsalis Pedis (L), Dorsalis Pedis (R) Skin: Warm, Dry, Intact, Other (bruising to upper extremtites) Neurological: No New Focal Deficit, Strength Equal Bilateral. No: Normal Speech Psy/Mental Status: Alert - Patient Data Lab Results Last 24 hrs: Laboratory Results - last 24 hr 08/21/21 08/21/21 08/21/21 Range/Units 13:30 13:30 14:25 WBC 23.32 H (5.00-10.00) 10^3/uL RBC 3.57 L (4.50-6.00) 10^6/uL Hgb 11.5 L (13.0-17.0) g/dL Hct 33.4 L (40.0-52.0) % MCV 93.6 H (82.0-92.0) fL MCH 32.2 H (27.0-31.0) pg MCHC 34.4 (32.0-36.0) g/dL RDW 13.0 (11.5-14.5) % Plt Count 460 H (150-400) 10^3/uL MPV 8.5 (7.4-10.4) fL Immature Gran % (Auto) 0.6 (0.0-5.0) % Neut % (Auto) 84.6 H (50.0-70.0) % Lymph % (Auto) 5.0 L (20.0-40.0) % [place] % (Auto) 9.5 H (2.0-8.0) % Eos % (Auto) 0.2 L (1.0-3.0) % Baso % (Auto) 0.1 (0.0-1.0) % Neut # (Auto) 19.73 H (2.50-7.00) 10^3/uL Lymph # (Auto) 1.17 (1.00-4.00) 10^3/uL [place] # (Auto) 2.22 H (0.10-0.80) 10^3/uL Eos # (Auto) 0.04 L (0.10-0.30) 10^3/uL Baso # (Auto) 0.03 (0.00-0.10) 10^3/uL Immature Gran # (Auto) 0.13 (0.00-0.50) 10^3/uL PT 12.6 H (9.2-11.2) SEC INR 1.3 H (0.9-1.1) APTT 29.9 (22.8-31.4) SEC Sodium 133 L (136-145) mmol/L Potassium 5.3 H (3.5-5.1) mmol/L Chloride 96 L (98-107) mmol/L Carbon Dioxide 21.0 (21.0-32.0) mmol/L Anion Gap 21.3 H (5-15) mmol/L BUN 35 H (7-18) mg/dL Creatinine 1.26 H (0.51-1.17) mg/dL Est Cr Clr Drug Dosing TNP Estimated GFR (MDRD) 55 mL/min Glucose 104 (70-140) mg/dL Lactic Acid (0.4-2.0) mmol/L Calcium 9.5 (8.7-10.3) mg/dL Total Bilirubin 0.5 (0.2-1.0) mg/dL AST 27 (15-37) U/L ALT 60 (14-63) U/L Alkaline Phosphatase 215 H (46-116) U/L Troponin I High Sens 493.600 H* (0-76.000) pg/mL B-Natriuretic Peptide (0-100) pg/mL Total Protein 7.9 (6.4-8.2) g/dL Albumin 3.28 L (3.40-5.00) g/dL Ethyl Alcohol < 3 H (NOT DETECTED) mg/dL SARS CoV-2 RNA Rapid BRUNILDA (NEGATIVE) 08/21/21 08/21/21 08/21/21 Range/Units 16:40 16:50 18:35 WBC (5.00-10.00) 10^3/uL RBC (4.50-6.00) 10^6/uL Hgb (13.0-17.0) g/dL Hct (40.0-52.0) % MCV (82.0-92.0) fL MCH (27.0-31.0) pg MCHC (32.0-36.0) g/dL RDW (11.5-14.5) % Plt Count (150-400) 10^3/uL MPV (7.4-10.4) fL Immature Gran % (Auto) (0.0-5.0) % Neut % (Auto) (50.0-70.0) % Lymph % (Auto) (20.0-40.0) % [place] % (Auto) (2.0-8.0) % Eos % (Auto) (1.0-3.0) % Baso % (Auto) (0.0-1.0) % Neut # (Auto) (2.50-7.00) 10^3/uL Lymph # (Auto) (1.00-4.00) 10^3/uL [place] # (Auto) (0.10-0.80) 10^3/uL Eos # (Auto) (0.10-0.30) 10^3/uL Baso # (Auto) (0.00-0.10) 10^3/uL Immature Gran # (Auto) (0.00-0.50) 10^3/uL PT (9.2-11.2) SEC INR (0.9-1.1) APTT (22.8-31.4) SEC Sodium (136-145) mmol/L Potassium (3.5-5.1) mmol/L Chloride (98-107) mmol/L Carbon Dioxide (21.0-32.0) mmol/L Anion Gap (5-15) mmol/L BUN (7-18) mg/dL Creatinine (0.51-1.17) mg/dL Est Cr Clr Drug Dosing Estimated GFR (MDRD) mL/min Glucose (70-140) mg/dL Lactic Acid 2.2 H (0.4-2.0) mmol/L Calcium (8.7-10.3) mg/dL Total Bilirubin (0.2-1.0) mg/dL AST (15-37) U/L ALT (14-63) U/L Alkaline Phosphatase (46-116) U/L Troponin I High Sens (0-76.000) pg/mL B-Natriuretic Peptide 171 H (0-100) pg/mL Total Protein (6.4-8.2) g/dL Albumin (3.40-5.00) g/dL Ethyl Alcohol (NOT DETECTED) mg/dL SARS CoV-2 RNA Rapid BRUNILDA Negative (NEGATIVE) 08/21/21 08/21/21 08/21/21 Range/Units 18:35 22:55 22:55 WBC (5.00-10.00) 10^3/uL RBC (4.50-6.00) 10^6/uL Hgb (13.0-17.0) g/dL Hct (40.0-52.0) % MCV (82.0-92.0) fL MCH (27.0-31.0) pg MCHC (32.0-36.0) g/dL RDW (11.5-14.5) % Plt Count (150-400) 10^3/uL MPV (7.4-10.4) fL Immature Gran % (Auto) (0.0-5.0) % Neut % (Auto) (50.0-70.0) % Lymph % (Auto) (20.0-40.0) % [place] % (Auto) (2.0-8.0) % Eos % (Auto) (1.0-3.0) % Baso % (Auto) (0.0-1.0) % Neut # (Auto) (2.50-7.00) 10^3/uL Lymph # (Auto) (1.00-4.00) 10^3/uL [place] # (Auto) (0.10-0.80) 10^3/uL Eos # (Auto) (0.10-0.30) 10^3/uL Baso # (Auto) (0.00-0.10) 10^3/uL Immature Gran # (Auto) (0.00-0.50) 10^3/uL PT (9.2-11.2) SEC INR (0.9-1.1) APTT (22.8-31.4) SEC Sodium (136-145) mmol/L Potassium (3.5-5.1) mmol/L Chloride (98-107) mmol/L Carbon Dioxide (21.0-32.0) mmol/L Anion Gap (5-15) mmol/L BUN (7-18) mg/dL Creatinine (0.51-1.17) mg/dL Est Cr Clr Drug Dosing Estimated GFR (MDRD) mL/min Glucose (70-140) mg/dL Lactic Acid 0.7 (0.4-2.0) mmol/L Calcium (8.7-10.3) mg/dL Total Bilirubin (0.2-1.0) mg/dL AST (15-37) U/L ALT (14-63) U/L Alkaline Phosphatase (46-116) U/L Troponin I High Sens 413.300 H* 339.200 H* (0-76.000) pg/mL B-Natriuretic Peptide (0-100) pg/mL Total Protein (6.4-8.2) g/dL Albumin (3.40-5.00) g/dL Ethyl Alcohol (NOT DETECTED) mg/dL SARS CoV-2 RNA Rapid BRUNILDA (NEGATIVE) 08/22/21 08/22/21 Range/Units 07:20 07:20 WBC 15.17 H (5.00-10.00) 10^3/uL RBC 3.07 L (4.50-6.00) 10^6/uL Hgb 9.7 L D (13.0-17.0) g/dL Hct 28.9 L (40.0-52.0) % MCV 94.1 H (82.0-92.0) fL MCH 31.6 H (27.0-31.0) pg MCHC 33.6 (32.0-36.0) g/dL RDW 13.2 (11.5-14.5) % Plt Count 440 H (150-400) 10^3/uL MPV 8.6 (7.4-10.4) fL Immature Gran % (Auto) 0.5 (0.0-5.0) % Neut % (Auto) 83.8 H (50.0-70.0) % Lymph % (Auto) 4.2 L (20.0-40.0) % [place] % (Auto) 11.1 H (2.0-8.0) % Eos % (Auto) 0.2 L (1.0-3.0) % Baso % (Auto) 0.2 (0.0-1.0) % Neut # (Auto) 12.71 H (2.50-7.00) 10^3/uL Lymph # (Auto) 0.64 L (1.00-4.00) 10^3/uL [place] # (Auto) 1.68 H (0.10-0.80) 10^3/uL Eos # (Auto) 0.03 L (0.10-0.30) 10^3/uL Baso # (Auto) 0.03 (0.00-0.10) 10^3/uL Immature Gran # (Auto) 0.08 (0.00-0.50) 10^3/uL PT (9.2-11.2) SEC INR (0.9-1.1) APTT (22.8-31.4) SEC Sodium 132 L (136-145) mmol/L Potassium 4.9 (3.5-5.1) mmol/L Chloride 103 (98-107) mmol/L Carbon Dioxide 18.9 L (21.0-32.0) mmol/L Anion Gap 15.0 (5-15) mmol/L BUN 29 H (7-18) mg/dL Creatinine 1.04 (0.51-1.17) mg/dL Est Cr Clr Drug Dosing 48.13 Estimated GFR (MDRD) > 60 mL/min Glucose 90 (70-140) mg/dL Lactic Acid (0.4-2.0) mmol/L Calcium 8.5 L (8.7-10.3) mg/dL Total Bilirubin 0.6 (0.2-1.0) mg/dL AST 23 (15-37) U/L ALT 49 (14-63) U/L Alkaline Phosphatase 181 H (46-116) U/L Troponin I High Sens (0-76.000) pg/mL B-Natriuretic Peptide (0-100) pg/mL Total Protein 6.5 (6.4-8.2) g/dL Albumin 2.58 L (3.40-5.00) g/dL Ethyl Alcohol (NOT DETECTED) mg/dL SARS CoV-2 RNA Rapid BRUNILDA (NEGATIVE) Result Diagrams: 08/22/21 07:20 08/22/21 07:20 Sepsis Event Note - Evaluation Sepsis Screening Result: No Definite Risk - Focused Exam Vital Signs: Vital Signs Temp Pulse Pulse Resp BP BP Pulse Ox 08/22/21 08:43 89 137/76 08/22/21 06:25 97.9 F 83 24 H 139/87 95 08/22/21 03:00 97.2 F 80 20 138/78 94 L 08/21/21 21:57 98.8 F 83 24 H 142/92 H 95 - Problem List Review Problem List Initiated/Reviewed/Updated: Yes - My Orders Last 24 Hours: My Active Orders 08/21/21 Dinner Thickened Liquids [DIET] 08/21/21 18:30 Enoxaparin [Lovenox] 60 mg SUBCUT Q12H Metoprolol Succinate [Toprol XL] 12.5 mg PO DAILY 08/21/21 19:45 Sodium Chloride 0.9% [Normal Saline] 1,000 ml IV ASDIRECTED 08/21/21 19:50 Consult to Case Management/Tester Vibrator Equipment [CONS] Routine 08/21/21 19:54 OT Evaluation and Treatment [CONS] Routine PT Evaluation and Treatment [CONS] Routine 08/21/21 21:00 Simvastatin [Zocor] 20 mg PO BEDTIME Tamsulosin [Flomax] 0.4 mg PO BEDTIME 08/21/21 21:27 Neuro Check [RC] 07,15,23 08/22/21 03:45 UA W/MICROSCOPIC [URIN] Routine 08/22/21 09:39 Dietary Supplements [RC] WITHMEALSANDBED 08/23/21 20:00 Levofloxacin/Dextrose 5%-Water [Levaquin in D5W 500 MG/100 ML] 500 mg Premix Bag 1 bag IV Q48H 08/23/21 21:00 Levofloxacin/Dextrose 5%-Water [Levaquin in D5W 250 MG/50 ML] 250 mg Premix Bag 1 bag IV Q48H - Plan Plan:: HPI summary: Arthur is an 85yM patient brought to the ER today per EMS after highway patrol was dispatched to check on patient after his daughter had called him from [place] and reported patient was confused, unable to complete sentences with word salad and expressive aphasia. Daughter reported patient had complained of cold symptoms on Tuesday (08/17/21). Patient has 35 pack year history of smoking and drinks 20 alcoholic beverages on a weekly basis. Of note, EMS reported that the house was in disarray and moldy food was found on the stove. Patient's in November,. ED course: Patient confused, expressive aphasia and L sided weakness. NIH stroke scale = 8. WBC 23k, neutrophils 84.6%, Na 133, K 5.3, BUN 35, Creatinine 1.26, Alk phos 215. Trop 493. Lactic acid 2.2. CXR: cardiomegaly, vascular congestion; scattered linear opacities of bilateral mid, lower lungs suggestive of developing pneumonia. EKG: NSR w RBBB, no ST elevation. ASA 324mg given in ER. IV fluids started at 150ml/hr. [facility] neurology recommended palliative care for patient, declined admission. Hospital course: 08/21/21: Patient states "treat me" when clarifying code status for antibiotics, IV fluids versus comfort care. Expressive aphasia continues, mild left arm weakness. Vitals stable. Will trend troponin tonight. Initiating IV antibiotics for pneumonia. Tolerating thickened liquids and taking pills without difficulty. 08/22/21: No calls overnight. Patient spoke a full sentence to RN this am. He is frustrated at times due to expressive aphasia. Minimal verbalizations offered. Occasional cough. Lung sounds with mild crackles. Weakness to LUE somewhat improved from last night. Neuro checks stable. VSS. Lisinopril remains on hold. Will offer protein supplementation due to low albumin. Starting nicotine patch this morning due to current smoking status. Hospitalization problems and plan: # NSTEMI - initial troponin 493; cardiomegaly/vascular congestion on CXR will obtain BNP. No echo on file. Troponin trended downward x 3, 339 last night - Troponin trended down x 3 - Metoprolol 12.5mg PO daily - Continue lovenox 60mg subq BID - BNP 171 - IV fluid rate decreased from 150ml/hr to 50ml/hr - Oxygen 2 LPM NC for comfort - Continue cardiac monitoring # CVA - Head CT/CTA: Area of hypodensity L anterior frontal lobe with loss of white matter differentiation suggestive of subacute infarct; non-specific white matter disease - chronic microvascular ischemia - Allow for permissive hypertension - home lisinopril on hold - Continue thickened liquids with similar consistency foods such as pudding, cream of wheat - PT/OT evaluation and treatment - evaluation on Tuesday - client services account manager consult for discharge planning # Pneumonia - WBC improved this morning to 15.17k, (83.8% neutrophils); CXR indicates scattered, linear opacities of the bilateral mid, lower lungs # Lactic acidosis - 2.2 in ER - Continue levaquin 750mg IV Q48H per pharmacy dosing - BC x 2 pending - Lactic acid repeated last night, normal 0.7 - CBC in am Chronic, stable conditions: # Hypertension - on lisinopril 10mg (hold) # Hyperlipidemia - continue simvastatin 20mg PO # Benign prostatic hypertrophy - continue flomax 0.4mg PO daily # Tobacco dependence - will start nicotine patch today to decrease possible nicotine withdrawl symptoms Hospitalization details: # FEN: NS 50ml/hr, mild hyponatremia, thickened liquids # PPX: Continue lovenox 60mg subq BID # Code status: DNR/DNI # Emergency contact: Arnaud Kenny - updated at bedside. Patient's daughter flying in from [place] today # Disposition: I anticipate > 2 midnights for treatment of pneumonia, NSTEMI and CVA. Patient continues to meet inpatient status. Anticipate patient will likely need SNF upon discharge, will consult psych social worker for discharge plan nabil - anticipate patient will need at least short rehab stay for rehabiliation vs joint terminal [facility] need, will depend on clinical improvement and functional ability; PT/OT eval on Tuesday08/24/21.
[2021-08-22] MEDS: Nicotine 21 MG/24 Hr Patch TRDERM SCH (12:43)
[2021-08-22] MEDS ORDERED: Levofloxacin/Dextrose 5%-Water 250 MG in Premix Bag 1 BAG IV SCH (18:00)
[2021-08-22] MEDS: Simvastatin 20 MG Tab PO SCH ×2 (19:33→20:20)
[2021-08-22] MEDS: Tamsulosin 0.4 MG Cap.ER PO SCH ×2 (19:33→20:20)
[2021-08-22] MEDS ORDERED: Levofloxacin/Dextrose 5%-Water 500 MG in Premix Bag 1 BAG IV SCH (19:45)
[2021-08-23] MEDS ORDERED: Diltiazem 25 MG/5 ML SDV IVPUSH ONE (01:25)
[2021-08-23] MEDS ORDERED: Diltiazem 125 MG in Sodium Chloride 0.9% 100 ML IV SCH (01:30)
[2021-08-23] MEDS: Sodium Chloride 0.9% 1,000 ML IV SCH ×3 (02:29→08:13)
[2021-08-23] MEDS: Amiodarone In Dextrose,Iso-Osm 360 MG in Premix Bag 1 BAG IV SCH ×4 (03:36→09:44)
[2021-08-23] MEDS: Enoxaparin 60 MG/0.6 ML Syringe SUBCUT SCH ×2 (06:15→17:30)
[2021-08-23 08:08] LABS: SODIUM,NA 134 mmol/L (136-145)
[2021-08-23 08:09] LABS: ANION GAP 10.6 mmol/L (5-15); CHLORIDE,CL 107 mmol/L (98-107)
[2021-08-23] MEDS: Metoprolol Succinate 25 MG Tab.ER PO SCH ×2 (08:53→20:07)
[2021-08-23] MEDS: Nicotine 21 MG/24 Hr Patch TRDERM SCH (08:54)
[2021-08-23] MEDS ORDERED: Bisacodyl 10 MG Supp RECTAL ONE (09:21)
[2021-08-23] MEDS ORDERED: Metoprolol Tartrate 5 MG/5 ML SDV IVPUSH ONE ×4 (09:27→10:53)
--- NOTE | 2021-08-23 10:27 | PCM.PN ---
- General Info Date of Service: 08/23/21 Subjective Update: Expressive aphasia continues, unable to obtain complete ROS - Review of Systems Pulmonary: Reports: No Symptoms. Denies: Shortness of Breath Cardiovascular: Reports: No Symptoms. Denies: Chest Pain, Palpitations Genitourinary: Reports: Incontinence Neurological: Reports: Trouble Speaking - Patient Data Vitals - Most Recent: Last Vital Signs Temp 97.6 F 08/23/21 06:38 Pulse 131 H 08/23/21 10:08 Resp 28 H 08/23/21 06:38 BP 108/72 08/23/21 10:08 Pulse Ox 97 08/23/21 06:38 Weight - Most Recent: 139 lb 6.4 oz I&O - Last 24 Hours: Intake & Output 08/22/21 08/23/21 08/23/21 22:59 06:59 14:59 Intake Total 866 194 Output Total 200 Balance 666 194 Lab Results Last 24 Hours: Laboratory Results - last 24 hr 08/22/21 08/23/21 08/23/21 Range/Units 18:20 07:14 07:14 WBC 16.47 H (5.00-10.00) 10^3/uL RBC 3.39 L (4.50-6.00) 10^6/uL Hgb 10.8 L (13.0-17.0) g/dL Hct 32.3 L (40.0-52.0) % MCV 95.3 H (82.0-92.0) fL MCH 31.9 H (27.0-31.0) pg MCHC 33.4 (32.0-36.0) g/dL RDW 13.1 (11.5-14.5) % Plt Count 516 H D (150-400) 10^3/uL MPV 8.4 (7.4-10.4) fL Immature Gran % (Auto) 0.9 (0.0-5.0) % Neut % (Auto) 89.2 H (50.0-70.0) % Lymph % (Auto) 3.8 L (20.0-40.0) % [place] % (Auto) 6.0 (2.0-8.0) % Eos % (Auto) 0.0 L (1.0-3.0) % Baso % (Auto) 0.1 (0.0-1.0) % Neut # (Auto) 14.70 H (2.50-7.00) 10^3/uL Lymph # (Auto) 0.62 L (1.00-4.00) 10^3/uL [place] # (Auto) 0.99 H (0.10-0.80) 10^3/uL Eos # (Auto) 0.00 L (0.10-0.30) 10^3/uL Baso # (Auto) 0.02 (0.00-0.10) 10^3/uL Immature Gran # (Auto) 0.14 (0.00-0.50) 10^3/uL Sodium 134 L (136-145) mmol/L Potassium 5.3 H (3.5-5.1) mmol/L Chloride 107 (98-107) mmol/L Carbon Dioxide 21.7 (21.0-32.0) mmol/L Anion Gap 10.6 (5-15) mmol/L BUN 27 H (7-18) mg/dL Creatinine 1.13 (0.51-1.17) mg/dL Est Cr Clr Drug Dosing 44.30 mL/min Estimated GFR (MDRD) > 60 mL/min Glucose 150 H (70-140) mg/dL Calcium 8.4 L (8.7-10.3) mg/dL Total Bilirubin 0.5 (0.2-1.0) mg/dL AST 49 H (15-37) U/L ALT 83 H (14-63) U/L Alkaline Phosphatase 219 H (46-116) U/L B-Natriuretic Peptide (0-100) pg/mL Total Protein 6.4 (6.4-8.2) g/dL Albumin 2.52 L (3.40-5.00) g/dL Specimen Type Urincc Urine Color Yellow (YELLOW) Urine Appearance Clear (CLEAR) Urine pH 6.0 (5.0-9.0) Ur Specific Panther 1.020 (1.005-1.030) Urine Protein 30 H (NEGATIVE) mg/dL Urine Glucose (UA) Negative (NEGATIVE) mg/dL Urine Ketones Trace H (NEGATIVE) mg/dL Urine Occult Blood Trace-intact H (NEGATIVE) Urine Nitrite Negative (NEGATIVE) Urine Bilirubin Negative (NEGATIVE) Urine Urobilinogen >=8.0 H (0.2-1.0) E.U./dL Ur Leukocyte Esterase Negative (NEGATIVE) Urine RBC 0-5 (0-5) /HPF Urine WBC 0-5 (0-5) /HPF Ur Epithelial Cells Not seen /LPF Urine Bacteria Not seen (NONE TO FEW) /HPF 08/23/21 Range/Units 07:14 WBC (5.00-10.00) 10^3/uL RBC (4.50-6.00) 10^6/uL Hgb (13.0-17.0) g/dL Hct (40.0-52.0) % MCV (82.0-92.0) fL MCH (27.0-31.0) pg MCHC (32.0-36.0) g/dL RDW (11.5-14.5) % Plt Count (150-400) 10^3/uL MPV (7.4-10.4) fL Immature Gran % (Auto) (0.0-5.0) % Neut % (Auto) (50.0-70.0) % Lymph % (Auto) (20.0-40.0) % [place] % (Auto) (2.0-8.0) % Eos % (Auto) (1.0-3.0) % Baso % (Auto) (0.0-1.0) % Neut # (Auto) (2.50-7.00) 10^3/uL Lymph # (Auto) (1.00-4.00) 10^3/uL [place] # (Auto) (0.10-0.80) 10^3/uL Eos # (Auto) (0.10-0.30) 10^3/uL Baso # (Auto) (0.00-0.10) 10^3/uL Immature Gran # (Auto) (0.00-0.50) 10^3/uL Sodium (136-145) mmol/L Potassium (3.5-5.1) mmol/L Chloride (98-107) mmol/L Carbon Dioxide (21.0-32.0) mmol/L Anion Gap (5-15) mmol/L BUN (7-18) mg/dL Creatinine (0.51-1.17) mg/dL Est Cr Clr Drug Dosing mL/min Estimated GFR (MDRD) mL/min Glucose (70-140) mg/dL Calcium (8.7-10.3) mg/dL Total Bilirubin (0.2-1.0) mg/dL AST (15-37) U/L ALT (14-63) U/L Alkaline Phosphatase (46-116) U/L B-Natriuretic Peptide 294 H (0-100) pg/mL Total Protein (6.4-8.2) g/dL Albumin (3.40-5.00) g/dL Specimen Type Urine Color (YELLOW) Urine Appearance (CLEAR) Urine pH (5.0-9.0) Ur Specific Panther (1.005-1.030) Urine Protein (NEGATIVE) mg/dL Urine Glucose (UA) (NEGATIVE) mg/dL Urine Ketones (NEGATIVE) mg/dL Urine Occult Blood (NEGATIVE) Urine Nitrite (NEGATIVE) Urine Bilirubin (NEGATIVE) Urine Urobilinogen (0.2-1.0) E.U./dL Ur Leukocyte Esterase (NEGATIVE) Urine RBC (0-5) /HPF Urine WBC (0-5) /HPF Ur Epithelial Cells /LPF Urine Bacteria (NONE TO FEW) /HPF [place] Results Last 24 Hours: Microbiology 08/21/21 16:40 Aerobic Blood Culture - Preliminary Blood - Venous - Lab Draw NO GROWTH AFTER 1 DAY Anaerobic Blood Culture - Preliminary NO GROWTH AFTER 1 DAY 08/21/21 16:50 Aerobic Blood Culture - Preliminary Blood - Venous NO GROWTH AFTER 1 DAY Anaerobic Blood Culture - Preliminary NO GROWTH AFTER 1 DAY Med Orders - Current: Current Medications Enoxaparin Sodium (Enoxaparin 60 Mg/0.6 Ml Syringe) 60 mg SUBCUT Q12H JAVIER Last Admin: 08/23/21 06:15 Dose: 60 mg Documented by: Sodium Chloride (Normal Saline) 1,000 mls @ 50 mls/hr IV ASDIRECTED JAVIER Last Admin: 08/23/21 08:13 Dose: 50 mls/hr Documented by: Levofloxacin/Dextrose 500 mg/ (Premix) 100 mls @ 100 mls/hr IV Q48H JAVIER Levofloxacin/Dextrose 250 mg/ (Premix) 50 mls @ 50 mls/hr IV Q48H JAVIER Amiodarone HCl/Dextrose 360 mg (/ Premix) 200 mls @ 33.3 mls/hr IV ASDIRECTED [facility]; Protocol Last Admin: 08/23/21 09:44 Dose: 33.3 mls/hr Documented by: Metoprolol Succinate (Metoprolol Succinate 25 Mg Tab.Er) 12.5 mg PO DAILY [facility] Last Admin: 08/23/21 08:53 Dose: 12.5 mg Documented by: Metoprolol Tartrate (Metoprolol Tartrate 5 Mg/5 Ml Sdv) 1 mg IVPUSH ONETIME ONE Stop: 08/23/21 10:24 Metoprolol Tartrate (Metoprolol Tartrate 5 Mg/5 Ml Sdv) 1 mg IVPUSH ONETIME ONE Stop: 08/23/21 10:39 Nicotine (Nicotine 21 Mg/24 Hr Patch) 21 mg TRDERM DAILY [facility] Last Admin: 08/23/21 08:54 Dose: 21 mg Documented by: Simvastatin (Simvastatin 20 Mg Tab) 20 mg PO BEDTIME [facility] Last Admin: 08/22/21 20:20 Dose: Not Given Documented by: Sodium Chloride (Sodium Chloride 0.9% 10 Ml Syringe) 10 ml FLUSH Q8HR PRN PRN Reason: keep vein open Tamsulosin HCl (Tamsulosin 0.4 Mg Cap.Er) 0.4 mg PO BEDTIME [facility] Last Admin: 08/22/21 20:20 Dose: Not Given Documented by: Discontinued Medications Aspirin (Aspirin 81 Mg Tab.Chew) 324 mg PO ONETIME ONE Stop: 08/21/21 15:44 Last Admin: 08/21/21 15:44 Dose: 324 mg Documented by: Bisacodyl (Bisacodyl 10 Mg Supp) 10 mg RECTAL ONETIME ONE Stop: 08/23/21 09:22 Last Admin: 08/23/21 09:53 Dose: 10 mg Documented by: Diltiazem HCl (Diltiazem 25 Mg/5 Ml Sdv) 15 mg IVPUSH NOW ONE Stop: 08/23/21 01:26 Last Admin: 08/23/21 01:36 Dose: 15 mg Documented by: Sodium Chloride (Normal Saline) 50 mls @ 200 mls/min IV ASDIRECTED [facility] Last Admin: 08/21/21 15:35 Dose: 200 mls/min Documented by: Sodium Chloride (Normal Saline) 1,000 mls @ 150 mls/hr IV .BOLUS ONE Stop: 08/21/21 22:09 Last Infusion: 08/21/21 20:30 Dose: 50 mls/hr Documented by: Levofloxacin/Dextrose 250 mg/ (Premix) 50 mls @ 50 mls/hr IV Q24H JAVIER Levofloxacin/Dextrose 500 mg/ (Premix) 100 mls @ 100 mls/hr IV NOW ONE Stop: 08/21/21 19:14 Last Admin: 08/21/21 19:14 Dose: 100 mls/hr Documented by: Levofloxacin/Dextrose 250 mg/ (Premix) 50 mls @ 50 mls/hr IV ONETIME ONE Stop: 08/21/21 20:29 Last Admin: 08/21/21 20:31 Dose: 50 mls/hr Documented by: Diltiazem HCl 125 mg/ Sodium (Chloride) 125 mls @ 5 mls/hr IV TITRATE JAVIER; Protocol Last Infusion: 08/23/21 02:29 Dose: 2.5 mg/hr, 2.5 mls/hr Documented by: Iopamidol (Iopamidol 755 Mg/Ml 100 Ml Bottle) 100 ml IV ONETIME ONE Stop: 08/21/21 15:35 Last Admin: 08/21/21 15:35 Dose: 100 ml Documented by: Metoprolol Tartrate (Metoprolol Tartrate 5 Mg/5 Ml Sdv) 1 mg IVPUSH ONETIME ONE Stop: 08/23/21 09:28 Last Admin: 08/23/21 10:08 Dose: 1 mg Documented by: - Exam Quality Assessment: Supplemental Oxygen (for cardiac support given recent NSTEMI, new onset atrial fib), DVT Prophylaxis. No: Urine Catheter General: Alert, Cooperative HEENT: Pupils Equal, Mucous Membr. Moist/[place] Neck: Supple, Trachea Midline Lungs: Decreased Breath Sounds, Crackles (fine to bilateral bases). No: Rhonchi, Wheezing Cardiovascular: Irregular Rhythm (irregularly irregular), Tachycardia GI/Abdominal Exam: Normal Bowel Sounds, Soft, No Distention, Tender (mild tenderness to palpation this morning) (Male) Exam: Deferred Back Exam: Normal Inspection, Full Range of Motion Extremities: Normal Inspection, Normal Range of Motion, Non-Tender, No Pedal Edema, Normal Capillary Refill, Other (Strength of L upper extremity improved this morning, minimal residual weakness) Peripheral Pulses: 2+: Dorsalis Pedis (L), Dorsalis Pedis (R) Skin: Warm, Dry, Intact Neurological: No New Focal Deficit, Other (expressive aphasia continues) Psy/Mental Status: Alert #1 Interpretation EKG Date: 08/23/21 Time: 01:05 Rhythm: A-Fib Rate (Beats/Min): 158 [place]: Normal P-Wave: Absent QRS: Wide ST-T: Normal QT: Prolonged (Slight prolongation QTc 502) Comparison: Change From Previous EKG - Patient Data Lab Results Last 24 hrs: Laboratory Results - last 24 hr 08/22/21 08/23/21 08/23/21 Range/Units 18:20 07:14 07:14 WBC 16.47 H (5.00-10.00) 10^3/uL RBC 3.39 L (4.50-6.00) 10^6/uL Hgb 10.8 L (13.0-17.0) g/dL Hct 32.3 L (40.0-52.0) % MCV 95.3 H (82.0-92.0) fL MCH 31.9 H (27.0-31.0) pg MCHC 33.4 (32.0-36.0) g/dL RDW 13.1 (11.5-14.5) % Plt Count 516 H D (150-400) 10^3/uL MPV 8.4 (7.4-10.4) fL Immature Gran % (Auto) 0.9 (0.0-5.0) % Neut % (Auto) 89.2 H (50.0-70.0) % Lymph % (Auto) 3.8 L (20.0-40.0) % [place] % (Auto) 6.0 (2.0-8.0) % Eos % (Auto) 0.0 L (1.0-3.0) % Baso % (Auto) 0.1 (0.0-1.0) % Neut # (Auto) 14.70 H (2.50-7.00) 10^3/uL Lymph # (Auto) 0.62 L (1.00-4.00) 10^3/uL [place] # (Auto) 0.99 H (0.10-0.80) 10^3/uL Eos # (Auto) 0.00 L (0.10-0.30) 10^3/uL Baso # (Auto) 0.02 (0.00-0.10) 10^3/uL Immature Gran # (Auto) 0.14 (0.00-0.50) 10^3/uL Sodium 134 L (136-145) mmol/L Potassium 5.3 H (3.5-5.1) mmol/L Chloride 107 (98-107) mmol/L Carbon Dioxide 21.7 (21.0-32.0) mmol/L Anion Gap 10.6 (5-15) mmol/L BUN 27 H (7-18) mg/dL Creatinine 1.13 (0.51-1.17) mg/dL Est Cr Clr Drug Dosing 44.30 mL/min Estimated GFR (MDRD) > 60 mL/min Glucose 150 H (70-140) mg/dL Calcium 8.4 L (8.7-10.3) mg/dL Total Bilirubin 0.5 (0.2-1.0) mg/dL AST 49 H (15-37) U/L ALT 83 H (14-63) U/L Alkaline Phosphatase 219 H (46-116) U/L B-Natriuretic Peptide (0-100) pg/mL Total Protein 6.4 (6.4-8.2) g/dL Albumin 2.52 L (3.40-5.00) g/dL Specimen Type Urincc Urine Color Yellow (YELLOW) Urine Appearance Clear (CLEAR) Urine pH 6.0 (5.0-9.0) Ur Specific Panther 1.020 (1.005-1.030) Urine Protein 30 H (NEGATIVE) mg/dL Urine Glucose (UA) Negative (NEGATIVE) mg/dL Urine Ketones Trace H (NEGATIVE) mg/dL Urine Occult Blood Trace-intact H (NEGATIVE) Urine Nitrite Negative (NEGATIVE) Urine Bilirubin Negative (NEGATIVE) Urine Urobilinogen >=8.0 H (0.2-1.0) E.U./dL Ur Leukocyte Esterase Negative (NEGATIVE) Urine RBC 0-5 (0-5) /HPF Urine WBC 0-5 (0-5) /HPF Ur Epithelial Cells Not seen /LPF Urine Bacteria Not seen (NONE TO FEW) /HPF 08/23/21 Range/Units 07:14 WBC (5.00-10.00) 10^3/uL RBC (4.50-6.00) 10^6/uL Hgb (13.0-17.0) g/dL Hct (40.0-52.0) % MCV (82.0-92.0) fL MCH (27.0-31.0) pg MCHC (32.0-36.0) g/dL RDW (11.5-14.5) % Plt Count (150-400) 10^3/uL MPV (7.4-10.4) fL Immature Gran % (Auto) (0.0-5.0) % Neut % (Auto) (50.0-70.0) % Lymph % (Auto) (20.0-40.0) % [place] % (Auto) (2.0-8.0) % Eos % (Auto) (1.0-3.0) % Baso % (Auto) (0.0-1.0) % Neut # (Auto) (2.50-7.00) 10^3/uL Lymph # (Auto) (1.00-4.00) 10^3/uL [place] # (Auto) (0.10-0.80) 10^3/uL Eos # (Auto) (0.10-0.30) 10^3/uL Baso # (Auto) (0.00-0.10) 10^3/uL Immature Gran # (Auto) (0.00-0.50) 10^3/uL Sodium (136-145) mmol/L Potassium (3.5-5.1) mmol/L Chloride (98-107) mmol/L Carbon Dioxide (21.0-32.0) mmol/L Anion Gap (5-15) mmol/L BUN (7-18) mg/dL Creatinine (0.51-1.17) mg/dL Est Cr Clr Drug Dosing mL/min Estimated GFR (MDRD) mL/min Glucose (70-140) mg/dL Calcium (8.7-10.3) mg/dL Total Bilirubin (0.2-1.0) mg/dL AST (15-37) U/L ALT (14-63) U/L Alkaline Phosphatase (46-116) U/L B-Natriuretic Peptide 294 H (0-100) pg/mL Total Protein (6.4-8.2) g/dL Albumin (3.40-5.00) g/dL Specimen Type Urine Color (YELLOW) Urine Appearance (CLEAR) Urine pH (5.0-9.0) Ur Specific Panther (1.005-1.030) Urine Protein (NEGATIVE) mg/dL Urine Glucose (UA) (NEGATIVE) mg/dL Urine Ketones (NEGATIVE) mg/dL Urine Occult Blood (NEGATIVE) Urine Nitrite (NEGATIVE) Urine Bilirubin (NEGATIVE) Urine Urobilinogen (0.2-1.0) E.U./dL Ur Leukocyte Esterase (NEGATIVE) Urine RBC (0-5) /HPF Urine WBC (0-5) /HPF Ur Epithelial Cells /LPF Urine Bacteria (NONE TO FEW) /HPF Result Diagrams: 08/23/21 07:14 08/23/21 07:14 [place] Results Last 24 hrs: Microbiology 08/21/21 16:40 Aerobic Blood Culture - Preliminary Blood - Venous - Lab Draw NO GROWTH AFTER 1 DAY Anaerobic Blood Culture - Preliminary NO GROWTH AFTER 1 DAY 08/21/21 16:50 Aerobic Blood Culture - Preliminary Blood - Venous NO GROWTH AFTER 1 DAY Anaerobic Blood Culture - Preliminary NO GROWTH AFTER 1 DAY Sepsis Event Note - Evaluation Sepsis Screening Result: No Definite Risk - Focused Exam Vital Signs: Vital Signs Temp Pulse Pulse Resp BP BP Pulse Ox 08/23/21 10:08 131 H 108/72 08/23/21 08:53 130 H 101/77 08/23/21 07:00 121 H 106/73 08/23/21 06:45 131 H 75/52 L 08/23/21 06:38 97.6 F 86 28 H 96/66 97 08/23/21 06:30 143 H 96/66 08/23/21 06:15 133 H 88/58 L 08/23/21 06:00 132 H 79/60 L 08/23/21 05:45 128 H 93/65 08/23/21 05:30 133 H 92/57 L 08/23/21 05:15 131 H 77/49 L 08/23/21 05:00 139 H 84/53 L 08/23/21 04:45 143 H 81/53 L 08/23/21 04:30 141 H 71/47 L 08/23/21 04:15 160 H 93/63 08/23/21 04:00 165 H 89/62 L 08/23/21 03:45 124 H 79/52 L 08/23/21 03:30 150 H 87/65 L 08/23/21 03:15 153 H 98/63 08/23/21 03:00 98.1 F 139 H 28 H 81/59 L 97 08/23/21 02:45 155 H 77/55 L 08/23/21 02:30 154 H 84/62 L 08/23/21 02:20 86/55 L 08/23/21 02:16 137 H 77/58 L 08/23/21 02:01 156 H 93/68 08/23/21 01:45 128 H 104/74 08/23/21 01:42 91/55 L 08/23/21 01:36 167 H 77/59 L 08/23/21 01:05 98.1 F 157 H 24 H 113/70 97 - Problem List Review Problem List Initiated/Reviewed/Updated: Yes - My Orders Last 24 Hours: My Active Orders 08/22/21 09:39 Dietary Supplements [RC] WITHMEALSANDBED 08/22/21 11:45 Nicotine [Habitrol] 21 mg TRDERM DAILY 08/23/21 01:00 EKG 12 Lead [EK] Stat 08/23/21 03:30 Amiodarone In Dextrose,Iso-Osm [Nexterone in Dextrose 360 MG/200 ML] 360 mg Premix Bag 1 bag IV ASDIRECTED 08/23/21 09:49 LIPASE [CHEM] Routine 08/23/21 10:23 Metoprolol Tartrate [Lopressor] 1 mg IVPUSH ONETIME ONE 08/23/21 10:38 Metoprolol Tartrate [Lopressor] 1 mg IVPUSH ONETIME ONE 08/23/21 10:53 Metoprolol Tartrate [Lopressor] 1 mg IVPUSH ONETIME ONE 08/23/21 20:00 Levofloxacin/Dextrose 5%-Water [Levaquin in D5W 500 MG/100 ML] 500 mg Premix Bag 1 bag IV Q48H 08/23/21 21:00 Levofloxacin/Dextrose 5%-Water [Levaquin in D5W 250 MG/50 ML] 250 mg Premix Bag 1 bag IV Q48H - Plan Plan:: HPI summary: Arthur is an 85yM patient brought to the ER today per EMS after highway patrol was dispatched to check on patient after his daughter had called him from [place] and reported patient was confused, unable to complete sentences with word salad and expressive aphasia. Daughter reported patient had complained of cold symptoms on Tuesday (08/17/21). Patient has 35 pack year history of smoking and drinks 20 alcoholic beverages on a weekly basis. Of note, EMS reported that the house was in disarray and moldy food was found on the stove. Patient's in November,. ED course: Patient confused, expressive aphasia and L sided weakness. NIH stroke scale = 8. WBC 23k, neutrophils 84.6%, Na 133, K 5.3, BUN 35, Creatinine 1.26, Alk phos 215. Trop 493. Lactic acid 2.2. CXR: cardiomegaly, vascular congestion; scattered linear opacities of bilateral mid, lower lungs suggestive of developing pneumonia. EKG: NSR w RBBB, no ST elevation. ASA 324mg given in ER. IV fluids started at 150ml/hr. [facility] neurology recommended palliative care for patient, declined admission. Hospital course: 08/21/21: Patient states "treat me" when clarifying code status for antibiotics, IV fluids versus comfort care. Expressive aphasia continues, mild left arm weakness. Vitals stable. Will trend troponin tonight. Initiating IV antibiotics for pneumonia. Tolerating thickened liquids and taking pills without difficulty. 08/22/21: No calls overnight. Patient spoke a full sentence to RN this am. He is frustrated at times due to expressive aphasia. Minimal verbalizations offered. Occasional cough. Lung sounds with mild crackles. Weakness to LUE somewhat improved from last night. Neuro checks stable. VSS. Lisinopril remains on hold. Will offer protein supplementation due to low albumin. Starting nicotine patch this morning due to current smoking status. 08/23/21: Received a phone call from nursing at 0110 indicating patient had gone into atrial fib with RVR with rates in the 170s to 180s. Patient has no known heart failure history, cardizem 15mg given bolus over 2 mintues followed by cardizem gtt at 5mg/hr. Patient became hypotensive which prompted the cardizem gtt to be stopped and NS bolus of 250ml x 3 were given with some improvement. Patient then started on amiodarone drip, patient tolerating this better with slight improvement in BP and gradual decrease in HR. Will obtain BNP in am, no echo on file. On rounds this am, patient denies SOB, CP, palpitations this morning. Left upper extremity weakness mildly improved today, expressive aphasia continues. Slight crackles to bilateral bases, O2 applied for comfort. HR irregularly irregular, remains in atrial fib, rates improved from early this morning; 120s - 130s. Amio gtt continues, addl metoprolol IV dosing and PO metoprolol succinate 12.5mg per Rup. Mild abdominal tenderness to palpation, date of last BM unknown - will give bisacodyl suppository; added lipase which was normal 56. Possible hepatic congestion/chronic ETOH; AST 49, ALT 83, Alk phos 219. Blood pressure improved from earlier today > 100 systolic. Suspect some low readings obtained may have been rather positional as patient was side lying with the arm upon which the BP was obtained on top. Repeat labs ordered for am CBC, CMP, Mg, Phos Hospitalization problems and plan: # NSTEMI - initial troponin 493; cardiomegaly/vascular congestion on CXR will obtain BNP. No echo on file. Troponin trended downward x 3, 339. - Troponin trended down x 3 - Metoprolol 12.5mg PO daily - Continue lovenox 60mg subq BID - BNP 171 - IV fluid rate decreased from 150ml/hr to 50ml/hr - Oxygen 2 LPM NC for comfort - Continue cardiac monitoring # New onset atrial fib with RVR # Hypotension - Trial of cardizem 15mg bolus followed by 5mg/hr gtt induced hypotension - NS bolus of 250ml x 3 given - Started amiodarone at 1mg/min (33.3ml/hr) x 6H, then decrease to 0.5mg/min - Continue home metoprolol succinate 12.5mg PO daily - Metoprolol tartrate IVP 1mg Q15M up to 4 doses for HR > 120 per Rup # CVA - Head CT/CTA: Area of hypodensity L anterior frontal lobe with loss of white matter differentiation suggestive of subacute infarct; non-specific white matter disease - chronic microvascular ischemia - Allow for permissive hypertension - home lisinopril on hold - Continue thickened liquids with similar consistency foods such as pudding, cream of wheat - PT/OT evaluation and treatment - evaluation on Tuesday - environmental services attendant consult for discharge planning # Pneumonia - WBC 16.47, (89.2% neutrophils); CXR indicates scattered, linear opacities of the bilateral mid, lower lungs # Lactic acidosis - 2.2 in ER - Continue levaquin 750mg IV Q48H per pharmacy dosing - BC x 2 NGTD x 1 day - Lactic acid repeated last night, normal 0.7 - CBC in am Chronic, stable conditions: # Hypertension - on lisinopril 10mg (hold) # Hyperlipidemia - continue simvastatin 20mg PO (consider holding if further elevation of LFT's) # Benign prostatic hypertrophy - continue flomax 0.4mg PO daily # Tobacco dependence - will start nicotine patch today to decrease possible nicotine withdrawal symptoms Hospitalization details: # FEN: NS 50ml/hr, K 5.3, thickened liquids # PPX: Continue lovenox 60mg subq BID # Code status: DNR/DNI # Emergency contact: SonArnaud - attempted to call and left a voicemail at [phone] to return the call regarding his father for an update in status. Return phone call received around 1000 this morning and updated son as to status including new onset atrial fib. # Disposition: Patient continues to meet inpatient status given multiple hospital problems. Anticipate patient will likely need SNF upon discharge, will consult manager social responsibility for discharge planning - anticipate patient will need at least short rehab stay for rehabiliation vs halfway [facility] need, will depend on clinical improvement and functional ability; PT/OT eval on 07/30.
[2021-08-23] MEDS ORDERED: Metoprolol Succinate 25 MG Tab.ER PO ONE (11:19)
[2021-08-23] MEDS: Amiodarone 200 MG Tab PO SCH (16:26)
[2021-08-23] MEDS ORDERED: Levofloxacin/Dextrose 5%-Water 500 MG in Premix Bag 1 BAG IV SCH (20:00)
[2021-08-23] MEDS: Tamsulosin 0.4 MG Cap.ER PO SCH (20:07)
[2021-08-23] MEDS: Simvastatin 20 MG Tab PO SCH (20:07)
[2021-08-23] MEDS ORDERED: Lidocaine 2% 100 MG/5 ML Syringe IVPUSH PRN (20:34)
[2021-08-23] MEDS ORDERED: EPINEPHrine 1:10,000 1 MG/10 ML Syringe IVPUSH PRN (20:34)
[2021-08-23] MEDS ORDERED: Nitroglycerin 0.4 MG Tab.SL SL PRN (20:34)
[2021-08-23] MEDS ORDERED: Atropine 0.1 MG/ML 10 ML Syringe IVPUSH PRN (20:34)
[2021-08-23] MEDS ORDERED: Levofloxacin/Dextrose 5%-Water 250 MG in Premix Bag 1 BAG IV SCH (21:00)
[2021-08-24] MEDS: Sodium Chloride 0.9% 1,000 ML IV SCH (05:24)
[2021-08-24] MEDS: Enoxaparin 60 MG/0.6 ML Syringe SUBCUT SCH ×2 (06:15→17:49)
[2021-08-24 08:40] LABS: ANION GAP 10.8 mmol/L (5-15); CHLORIDE,CL 108 mmol/L (98-107); SODIUM,NA 136 mmol/L (138-146)
[2021-08-24] MEDS: Nicotine 21 MG/24 Hr Patch TRDERM SCH (09:02)
[2021-08-24] MEDS: Amiodarone 200 MG Tab PO SCH (09:03)
[2021-08-24] MEDS: Metoprolol Succinate 25 MG Tab.ER PO SCH ×3 (09:03→20:18)
--- NOTE | 2021-08-24 13:16 | PCM.PN ---
- General Info Date of Service: 08/24/21 Functional Status: Reports: Pain Controlled, Tolerating Diet (continuing thickened liquids, pudding consistency foods until speech eval) - Review of Systems General: Reports: No Symptoms, Weakness, Fatigue. Denies: Fever, Chills HEENT: Reports: No Symptoms Pulmonary: Reports: No Symptoms. Denies: Shortness of Breath, Cough Cardiovascular: Reports: No Symptoms. Denies: Chest Pain, Palpitations Gastrointestinal: Reports: No Symptoms. Denies: Abdominal Pain, Constipation, Diarrhea, Nausea Genitourinary: Reports: Incontinence Musculoskeletal: Reports: No Symptoms Skin: Reports: Bruising Neurological: Reports: Trouble Speaking (expressive aphasia continues, able to speak short sentence this morning) Psychiatric: Reports: No Symptoms - Patient Data Vitals - Most Recent: Last Vital Signs Temp 97.2 F 08/24/21 11:00 Pulse 67 08/24/21 11:00 Resp 20 08/24/21 11:00 BP 135/79 08/24/21 11:00 Pulse Ox 98 08/24/21 11:00 Weight - Most Recent: 139 lb 6.4 oz I&O - Last 24 Hours: Intake & Output 08/23/21 08/24/21 08/24/21 22:59 06:59 14:59 Intake Total 1011 641 Balance 1011 641 Lab Results Last 24 Hours: Laboratory Results - last 24 hr 08/24/21 08/24/21 Range/Units 07:35 07:35 WBC 16.70 H (5.00-10.00) 10^3/uL RBC 3.02 L (4.50-6.00) 10^6/uL Hgb 9.6 L (13.0-17.0) g/dL Hct 28.8 L (40.0-52.0) % MCV 95.4 H (82.0-92.0) fL MCH 31.8 H (27.0-31.0) pg MCHC 33.3 (32.0-36.0) g/dL RDW 13.2 (11.5-14.5) % Plt Count 491 H (150-400) 10^3/uL MPV 8.3 (7.4-10.4) fL Immature Gran % (Auto) 0.6 (0.0-5.0) % Neut % (Auto) 84.5 H (50.0-70.0) % Lymph % (Auto) 3.9 L (20.0-40.0) % [place] % (Auto) 10.8 H (2.0-8.0) % Eos % (Auto) 0.1 L (1.0-3.0) % Baso % (Auto) 0.1 (0.0-1.0) % Neut # (Auto) 14.10 H (2.50-7.00) 10^3/uL Lymph # (Auto) 0.65 L (1.00-4.00) 10^3/uL [place] # (Auto) 1.81 H (0.10-0.80) 10^3/uL Eos # (Auto) 0.02 L (0.10-0.30) 10^3/uL Baso # (Auto) 0.02 (0.00-0.10) 10^3/uL Immature Gran # (Auto) 0.10 (0.00-0.50) 10^3/uL Sodium 136 L (138-146) mmol/L Potassium 4.5 (3.5-4.5) mmol/L Chloride 108 H (98-107) mmol/L Carbon Dioxide 21.7 (21.0-32.0) mmol/L Anion Gap 10.8 (5-15) mmol/L BUN 29 H (7-18) mg/dL Creatinine 1.08 (0.51-1.17) mg/dL Est Cr Clr Drug Dosing 46.35 mL/min Estimated GFR (MDRD) > 60 mL/min Glucose 104 (70-140) mg/dL Calcium 8.2 L (8.7-10.3) mg/dL Phosphorus 3.5 (2.6-4.7) mg/dL Magnesium 2.0 (1.8-2.4) mg/dL Total Bilirubin 0.4 (0.2-1.0) mg/dL AST 58 H (15-37) U/L ALT 133 H (14-63) U/L Alkaline Phosphatase 214 H (46-116) U/L Total Protein 6.2 L (6.4-8.2) g/dL Albumin 2.34 L (3.40-5.00) g/dL [place] Results Last 24 Hours: Microbiology 08/21/21 16:40 Aerobic Blood Culture - Preliminary Blood - Venous - Lab Draw NO GROWTH AFTER 2 DAYS Anaerobic Blood Culture - Preliminary NO GROWTH AFTER 2 DAYS 08/21/21 16:50 Aerobic Blood Culture - Preliminary Blood - Venous NO GROWTH AFTER 2 DAYS Anaerobic Blood Culture - Preliminary NO GROWTH AFTER 2 DAYS Med Orders - Current: Current Medications Amiodarone HCl (Amiodarone 200 Mg Tab) 200 mg PO DAILY [facility] Last Admin: 08/24/21 09:03 Dose: 200 mg Documented by: Atropine Sulfate (Atropine 0.1 Mg/Ml 10 Ml Syringe) 0 mg IVPUSH ASDIRECTED PRN PRN Reason: Heart. Enoxaparin Sodium (Enoxaparin 60 Mg/0.6 Ml Syringe) 60 mg SUBCUT Q12H [facility] Last Admin: 08/24/21 06:15 Dose: 60 mg Documented by: Epinephrine HCl (Epinephrine 1:10,000 1 Mg/10 Ml Syringe) 1 mg IVPUSH ASDIRECTED PRN PRN Reason: Heart. Sodium Chloride (Normal Saline) 1,000 mls @ 50 mls/hr IV ASDIRECTED [facility] Last Admin: 08/24/21 05:24 Dose: 50 mls/hr Documented by: Levofloxacin/Dextrose 500 mg/ (Premix) 100 mls @ 100 mls/hr IV Q48H [facility] Last Admin: 08/23/21 20:08 Dose: 100 mls/hr Documented by: Levofloxacin/Dextrose 250 mg/ (Premix) 50 mls @ 50 mls/hr IV Q48H [facility] Last Admin: 08/23/21 21:25 Dose: 50 mls/hr Documented by: Amiodarone HCl/Dextrose 360 mg (/ Premix) 200 mls @ 33.3 mls/hr IV ASDIRECTED [facility]; Protocol Last Admin: 08/23/21 09:44 Dose: 33.3 mls/hr Documented by: Lidocaine HCl (Lidocaine 2% 100 Mg/5 Ml Syringe) 0 mg IVPUSH ASDIRECTED PRN PRN Reason: Heart. Metoprolol Succinate (Metoprolol Succinate 25 Mg Tab.Er) 12.5 mg PO BID [facility] Last Admin: 08/24/21 09:03 Dose: 12.5 mg Documented by: Nicotine (Nicotine 21 Mg/24 Hr Patch) 21 mg TRDERM DAILY [facility] Last Admin: 08/24/21 09:02 Dose: 21 mg Documented by: Nitroglycerin (Nitroglycerin 0.4 Mg Tab.Sl) 0.4 mg SL ASDIRECTED PRN PRN Reason: Heart. Simvastatin (Simvastatin 20 Mg Tab) 20 mg PO BEDTIME [facility] Last Admin: 08/23/21 20:07 Dose: 20 mg Documented by: Sodium Chloride (Sodium Chloride 0.9% 10 Ml Syringe) 10 ml FLUSH Q8HR PRN PRN Reason: keep vein open Tamsulosin HCl (Tamsulosin 0.4 Mg Cap.Er) 0.4 mg PO BEDTIME [facility] Last Admin: 08/23/21 20:07 Dose: 0.4 mg Documented by: Discontinued Medications Aspirin (Aspirin 81 Mg Tab.Chew) 324 mg PO ONETIME ONE Stop: 08/21/21 15:44 Last Admin: 08/21/21 15:44 Dose: 324 mg Documented by: Bisacodyl (Bisacodyl 10 Mg Supp) 10 mg RECTAL ONETIME ONE Stop: 08/23/21 09:22 Last Admin: 08/23/21 09:53 Dose: 10 mg Documented by: Diltiazem HCl (Diltiazem 25 Mg/5 Ml Sdv) 15 mg IVPUSH NOW ONE Stop: 08/23/21 01:26 Last Admin: 08/23/21 01:36 Dose: 15 mg Documented by: Sodium Chloride (Normal Saline) 50 mls @ 200 mls/min IV ASDIRECTED [facility] Last Admin: 08/21/21 15:35 Dose: 200 mls/min Documented by: Sodium Chloride (Normal Saline) 1,000 mls @ 150 mls/hr IV .BOLUS ONE Stop: 08/21/21 22:09 Last Infusion: 08/21/21 20:30 Dose: 50 mls/hr Documented by: Levofloxacin/Dextrose 250 mg/ (Premix) 50 mls @ 50 mls/hr IV Q24H [facility] Levofloxacin/Dextrose 500 mg/ (Premix) 100 mls @ 100 mls/hr IV NOW ONE Stop: 08/21/21 19:14 Last Admin: 08/21/21 19:14 Dose: 100 mls/hr Documented by: Levofloxacin/Dextrose 250 mg/ (Premix) 50 mls @ 50 mls/hr IV ONETIME ONE Stop: 08/21/21 20:29 Last Admin: 08/21/21 20:31 Dose: 50 mls/hr Documented by: Diltiazem HCl 125 mg/ Sodium (Chloride) 125 mls @ 5 mls/hr IV TITRATE [facility]; Protocol Last Infusion: 08/23/21 02:29 Dose: 2.5 mg/hr, 2.5 mls/hr Documented by: Iopamidol (Iopamidol 755 Mg/Ml 100 Ml Bottle) 100 ml IV ONETIME ONE Stop: 08/21/21 15:35 Last Admin: 08/21/21 15:35 Dose: 100 ml Documented by: Metoprolol Succinate (Metoprolol Succinate 25 Mg Tab.Er) 12.5 mg PO DAILY [facility] Last Admin: 08/23/21 08:53 Dose: 12.5 mg Documented by: Metoprolol Succinate (Metoprolol Succinate 25 Mg Tab.Er) 12.5 mg PO ONETIME ONE Stop: 08/23/21 11:20 Last Admin: 08/23/21 11:26 Dose: 12.5 mg Documented by: Metoprolol Tartrate (Metoprolol Tartrate 5 Mg/5 Ml Sdv) 1 mg IVPUSH ONETIME ONE Stop: 08/23/21 09:28 Last Admin: 08/23/21 10:08 Dose: 1 mg Documented by: Metoprolol Tartrate (Metoprolol Tartrate 5 Mg/5 Ml Sdv) 1 mg IVPUSH ONETIME ONE Stop: 08/23/21 10:24 Last Admin: 08/23/21 10:25 Dose: 1 mg Documented by: Metoprolol Tartrate (Metoprolol Tartrate 5 Mg/5 Ml Sdv) 1 mg IVPUSH ONETIME ONE Stop: 08/23/21 10:39 Last Admin: 08/23/21 10:43 Dose: 1 mg Documented by: Metoprolol Tartrate (Metoprolol Tartrate 5 Mg/5 Ml Sdv) 1 mg IVPUSH ONETIME ONE Stop: 08/23/21 10:54 Last Admin: 08/23/21 11:03 Dose: 1 mg Documented by: - Exam Quality Assessment: DVT Prophylaxis. No: Supplemental Oxygen General: Alert, Cooperative, No Acute Distress HEENT: Pupils Equal, Mucous Membr. Moist/[place] Neck: Supple Lungs: Clear to Auscultation, Decreased Breath Sounds. No: Crackles, Rhonchi, Wheezing Cardiovascular: Regular Rate, Regular Rhythm (converted to NSR yesterday afternoon ), No Murmurs. No: Irregular Rhythm GI/Abdominal Exam: Normal Bowel Sounds, Soft, Non-Tender, No Distention (Male) Exam: Deferred Extremities: Normal Inspection, Normal Range of Motion, Non-Tender, No Pedal Edema, Normal Capillary Refill Peripheral Pulses: 2+: Dorsalis Pedis (L), Dorsalis Pedis (R) Skin: Warm, Dry, Intact Neurological: No New Focal Deficit, Strength Equal Bilateral. No: Normal Speech Psy/Mental Status: Alert, Normal Affect, Normal Mood #2 Interpretation EKG Date: 08/23/21 Time: 15:44 Rhythm: NSR Rate (Beats/Min): 74 [place]: Normal P-Wave: Present QRS: RBBB ST-T: Normal QT: Normal Comparison: Change From Previous EKG (Converted to NSR) - Patient Data Lab Results Last 24 hrs: Laboratory Results - last 24 hr 08/24/21 08/24/21 Range/Units 07:35 07:35 WBC 16.70 H (5.00-10.00) 10^3/uL RBC 3.02 L (4.50-6.00) 10^6/uL Hgb 9.6 L (13.0-17.0) g/dL Hct 28.8 L (40.0-52.0) % MCV 95.4 H (82.0-92.0) fL MCH 31.8 H (27.0-31.0) pg MCHC 33.3 (32.0-36.0) g/dL RDW 13.2 (11.5-14.5) % Plt Count 491 H (150-400) 10^3/uL MPV 8.3 (7.4-10.4) fL Immature Gran % (Auto) 0.6 (0.0-5.0) % Neut % (Auto) 84.5 H (50.0-70.0) % Lymph % (Auto) 3.9 L (20.0-40.0) % [place] % (Auto) 10.8 H (2.0-8.0) % Eos % (Auto) 0.1 L (1.0-3.0) % Baso % (Auto) 0.1 (0.0-1.0) % Neut # (Auto) 14.10 H (2.50-7.00) 10^3/uL Lymph # (Auto) 0.65 L (1.00-4.00) 10^3/uL [place] # (Auto) 1.81 H (0.10-0.80) 10^3/uL Eos # (Auto) 0.02 L (0.10-0.30) 10^3/uL Baso # (Auto) 0.02 (0.00-0.10) 10^3/uL Immature Gran # (Auto) 0.10 (0.00-0.50) 10^3/uL Sodium 136 L (138-146) mmol/L Potassium 4.5 (3.5-4.5) mmol/L Chloride 108 H (98-107) mmol/L Carbon Dioxide 21.7 (21.0-32.0) mmol/L Anion Gap 10.8 (5-15) mmol/L BUN 29 H (7-18) mg/dL Creatinine 1.08 (0.51-1.17) mg/dL Est Cr Clr Drug Dosing 46.35 mL/min Estimated GFR (MDRD) > 60 mL/min Glucose 104 (70-140) mg/dL Calcium 8.2 L (8.7-10.3) mg/dL Phosphorus 3.5 (2.6-4.7) mg/dL Magnesium 2.0 (1.8-2.4) mg/dL Total Bilirubin 0.4 (0.2-1.0) mg/dL AST 58 H (15-37) U/L ALT 133 H (14-63) U/L Alkaline Phosphatase 214 H (46-116) U/L Total Protein 6.2 L (6.4-8.2) g/dL Albumin 2.34 L (3.40-5.00) g/dL Result Diagrams: 08/24/21 07:35 08/24/21 07:35 [place] Results Last 24 hrs: Microbiology 08/21/21 16:40 Aerobic Blood Culture - Preliminary Blood - Venous - Lab Draw NO GROWTH AFTER 2 DAYS Anaerobic Blood Culture - Preliminary NO GROWTH AFTER 2 DAYS 08/21/21 16:50 Aerobic Blood Culture - Preliminary Blood - Venous NO GROWTH AFTER 2 DAYS Anaerobic Blood Culture - Preliminary NO GROWTH AFTER 2 DAYS Sepsis Event Note - Evaluation Sepsis Screening Result: No Definite Risk - Focused Exam Vital Signs: Vital Signs Temp Pulse Pulse Resp BP BP Pulse Ox 08/24/21 11:00 97.2 F 67 20 135/79 98 08/24/21 09:03 70 133/76 08/24/21 06:29 97.7 F 70 24 H 161/98 H 97 08/24/21 03:00 97.0 F 68 24 H 119/72 96 - Problem List Review Problem List Initiated/Reviewed/Updated: Yes - My Orders Last 24 Hours: My Active Orders 08/23/21 16:00 Amiodarone [Cordarone] 200 mg PO DAILY 08/23/21 20:00 Levofloxacin/Dextrose 5%-Water [Levaquin in D5W 500 MG/100 ML] 500 mg Premix Bag 1 bag IV Q48H 08/23/21 20:34 Atropine [Atropine 0.1 MG/ML] See Dose Instructions IVPUSH ASDIRECTED PRN EPINEPHrine [EPINEPHrine 1:10,000] 1 mg IVPUSH ASDIRECTED PRN Lidocaine 2% [Xylocaine 2%] See Dose Instructions IVPUSH ASDIRECTED PRN Nitroglycerin [Nitrostat] 0.4 mg SL ASDIRECTED PRN 08/23/21 21:00 Levofloxacin/Dextrose 5%-Water [Levaquin in D5W 250 MG/50 ML] 250 mg Premix Bag 1 bag IV Q48H Metoprolol Succinate [Toprol XL] 12.5 mg PO BID 08/24/21 09:54 CIWAA Assessment [RC] Q4H 08/25/21 05:11 CBC WITH AUTO DIFF [HEME] AM CMP [COMPREHENSIVE METABOLIC PN,CMP] [CHEM] AM - Plan Plan:: HPI summary: Arthur is an 85yM patient brought to the ER today per EMS after highway patrol was dispatched to check on patient after his daughter had called him from [place] and reported patient was confused, unable to complete sentences with word salad and expressive aphasia. Daughter reported patient had complained of cold symptoms on Tuesday (08/17/21). Patient has 35 pack year history of smoking and drinks 20 alcoholic beverages on a weekly basis. Of note, EMS reported that the house was in disarray and moldy food was found on the stove. Patient's in November,. ED course: Patient confused, expressive aphasia and L sided weakness. NIH stroke scale = 8. WBC 23k, neutrophils 84.6%, Na 133, K 5.3, BUN 35, Creatinine 1.26, Alk phos 215. Trop 493. Lactic acid 2.2. CXR: cardiomegaly, vascular congestion; scattered linear opacities of bilateral mid, lower lungs suggestive of developing pneumonia. EKG: NSR w RBBB, no ST elevation. ASA 324mg given in ER. IV fluids started at 150ml/hr. [facility] neurology recommended palliative care for patient, declined admission. Hospital course: 08/21/21: Patient states "treat me" when clarifying code status for antibiotics, IV fluids versus comfort care. Expressive aphasia continues, mild left arm weakness. Vitals stable. Will trend troponin tonight. Initiating IV antibiotics for pneumonia. Tolerating thickened liquids and taking pills without difficulty. 08/22/21: No calls overnight. Patient spoke a full sentence to RN this am. He is frustrated at times due to expressive aphasia. Minimal verbalizations offered. Occasional cough. Lung sounds with mild crackles. Weakness to LUE s omewhat improved from last night. Neuro checks stable. VSS. Lisinopril remains on hold. Will offer protein supplementation due to low albumin. Starting nicotine patch this morning due to current smoking status. 08/23/21: Received a phone call from nursing at 0110 indicating patient had gone into atrial fib with RVR with rates in the 170s to 180s. Patient has no known heart failure history, cardizem 15mg given bolus over 2 mintues followed by cardizem gtt at 5mg/hr. Patient became hypotensive which prompted the cardizem gtt to be stopped and NS bolus of 250ml x 3 were given with some improvement. Patient then started on amiodarone drip, patient tolerating this better with slight improvement in BP and gradual decrease in HR. Will obtain BNP in am, no echo on file. On rounds this am, patient denies SOB, CP, palpitations this morning. Left upper extremity weakness mildly improved today, expressive aphasia continues. Slight crackles to bilateral bases, O2 applied for comfort. HR irregularly irregular, remains in atrial fib, rates improved from early this morning; 120s - 130s. Amio gtt continues, addl metoprolol IV dosing and PO metoprolol succinate 12.5mg per Dr Rup. Mild abdominal tenderness to palpation, date of last BM unknown - will give bisacodyl suppository; added lipase which was normal 56. Possible hepatic congestion/chronic ETOH; AST 49, ALT 83, Alk phos 219. Blood pressure improved from earlier today > 100 systolic. Suspect some low readings obtained may have been rather positional as patient was side lying with the arm upon which the BP was obtained on top. Repeat labs ordered for am CBC, CMP, Mg, Phos 08/24/21: Patient converted to NSR at 1540 yesterday afternoon, confirmed by EKG. Continued amiodarone gtt x 1 hour and started amiodarone 100mg PO daily. Patient up in recliner on rounds this morning, brother and friend at bedside. Patient able to speak some words and one short sentence this morning. Awaiting speech evaluation prior to advancing fluids, diet. NO SOFT DIET until ST eval. Vitals stable. BC NGTD x2 days. WBC 16.70 with elevated monocytes. Na 136, K 4.5, BUN 29, AST 58, ALT 133, Alk phos 214, Albumin 2.34. Initiating CIWAA with librium PRN for signs of ETOH withdrawal. Started thiamine/vitamin B complex today. supervisor volunteer services working on discharge plan, both [facility] and [facility] have declined admission. Possible discharge tomorrow to [facility] for ST, PT, OT evaluation and treatment. Hospitalization problems and plan: # NSTEMI - initial troponin 493; cardiomegaly/vascular congestion on CXR will obtain BNP. No echo on file. Troponin trended downward x 3, 339. - Troponin trended down x 3 - Increased Metoprolol 12.5mg to BID dosing - Continue lovenox 60mg subq BID - plan for coumadin for anticoagulation upon discharge per Dr Shabazz with pharmacy to dose - BNP 171 - IV fluid rate decreased from 150ml/hr to 50ml/hr - Continue cardiac monitoring # New onset atrial fib with RVR; converted to NSR on 08/23/21 at 1540 # Hypotension; resolved. - Continue amiodarone 100mg PO daily per Dr Shabazz - Increased metoprolol succinate to 12.5mg PO BID - Continue cardiac monitoring - Continue enoxaparin for anticoagulation # CVA - Head CT/CTA: Area of hypodensity L anterior frontal lobe with loss of white matter differentiation suggestive of subacute infarct; non-specific white matter disease - chronic microvascular ischemia - Allow for permissive hypertension - home lisinopril on hold - Continue thickened liquids with similar consistency foods such as pudding, cream of wheat - PT/OT evaluation and treatment - evaluation on Tuesday - supervisor volunteer services consult for discharge planning with possible discharge tomorrow to [facility] # Pneumonia - WBC 16.70, (84.5% N, increased monocytes) ; CXR indicates scattered, linear opacities of the bilateral mid, lower lungs # Lactic acidosis - resolved. - Continue levaquin 750mg IV Q48H per pharmacy dosing - BC x 2 NGTD x 2 days - CBC in am Chronic, stable conditions: # Hypertension - on lisinopril 10mg (hold) # Hyperlipidemia - continue simvastatin 20mg PO (consider holding if further elevation of LFT's) # Benign prostatic hypertrophy - continue flomax 0.4mg PO daily # Tobacco dependence - will start nicotine patch today to decrease possible nicotine withdrawal symptoms Hospitalization details: # FEN: NS 50ml/hr, electrolytes stable, thickened liquids # PPX: Continue lovenox 60mg subq BID # Code status: DNR/DNI # Emergency contact: Arnaud Kenny - updated at bedside # Disposition: Patient to maintain inpatient status today. Possible discharge to [facility] tomorrow for ST eval as well as PT, OT.
[2021-08-24] MEDS ORDERED: chlordiazePOXIDE 10 MG Cap PO PRN (13:23)
[2021-08-24] MEDS: Vitamin B Complex Tab PO SCH (13:59)
[2021-08-24] MEDS: Thiamine 100 MG Tab PO SCH (13:59)
[2021-08-24] MEDS: Tamsulosin 0.4 MG Cap.ER PO SCH ×2 (19:29→20:18)
[2021-08-24] MEDS: Simvastatin 20 MG Tab PO SCH ×2 (19:29→20:19)
[2021-08-25] MEDS: Sodium Chloride 0.9% 1,000 ML IV SCH (01:25)
[2021-08-25] MEDS: Enoxaparin 60 MG/0.6 ML Syringe SUBCUT SCH (06:10)
--- NOTE | 2021-08-25 06:38 | PT ---
PATIENT NAME: KELVIN GOODEN MEDICAL RECORD NUMBER: : [id number] DATE: 08/24/2021 REFERRING PHYSICIAN: Ayde Rosas NP ONSET DATE: 08/21/2021. DIAGNOSIS: Cerebrovascular accident, left upper extremity weakness. SUBJECTIVE: The patient tells me that he is not feeling well at this time. The patient does not want to participate with physical therapy today. He says he is having difficulty lifting his left arm over head. The patient denies pain at this time. The patient is able to tell me that he is in [place]. OBJECTIVE TREATMENT TIME: 1330. Treatment consisted of attempted physical therapy initial evaluation. OBSERVATION: The patient is upright and sleeping in chair upon my arrival. The patient does appear confused and significantly weak and unmotivated. The patient does not want to attempt any PT today other than showing me that he can lift his arm only to shoulder level on left side. ASSESSMENT: Impression: Currently, the patient is not willing to comply with PT today. He does demonstrate active range of motion of his left upper extremity to 110 degrees of left shoulder flexion. The patient is not willing to attempt standing or any balance assessment at this point in time. The patient's speech is moderately slurred. The patient is having difficult time expressing himself clear enough to complete the evaluation. PLAN: Per physician's orders, I believe that the patient is going to be discharged to [facility] facility. In my opinion, the patient seems to need to have PT, OT, and speech therapy. I will consult with Director Of Safety And Security to discuss plan for this patient.
[2021-08-25] MEDS: Vitamin B Complex Tab PO SCH (08:19)
[2021-08-25] MEDS: Thiamine 100 MG Tab PO SCH (08:19)
[2021-08-25] MEDS: Nicotine 21 MG/24 Hr Patch TRDERM SCH (08:20)
[2021-08-25] MEDS: Metoprolol Succinate 25 MG Tab.ER PO SCH (08:20)
[2021-08-25] MEDS: Amiodarone 200 MG Tab PO SCH (08:21)
[2021-08-25 09:52] LABS: ANION GAP 12.6 mmol/L (5-15); CHLORIDE,CL 104 mmol/L (98-107); SODIUM,NA 136 mmol/L (136-145)
--- NOTE | 2021-08-25 10:23 | PCM.DCSUM1 ---
Discharge Summary - Hospital Course Free Text/Narrative:: Date of admission: 08/21/21 Date of discharge: 08/25/21 Admission diagnoses: Hospitalization problems and plan: # NSTEMI - initial troponin 493; cardiomegaly/vascular congestion on CXR will obtain BNP. No echo on file. Troponin trended downward x 3, 339. - Troponin trended down x 3 - Increased Metoprolol 12.5mg to BID dosing - Continue lovenox 60mg subq BID - plan for coumadin for anticoagulation upon discharge per Dr Shabazz with pharmacy to dose - BNP 171 - IV fluid rate decreased from 150ml/hr to 50ml/hr - Continue cardiac monitoring # New onset atrial fib with RVR; converted to NSR on 08/23/21 at 1540 # Hypotension; resolved. - Continue amiodarone 100mg PO daily per Dr Shabazz - Increased metoprolol succinate to 12.5mg PO BID - Continue cardiac monitoring - Continue enoxaparin for anticoagulation # CVA - Head CT/CTA: Area of hypodensity L anterior frontal lobe with loss of white matter differentiation suggestive of subacute infarct; non-specific white matter disease - chronic microvascular ischemia - Allow for permissive hypertension - home lisinopril on hold - Continue thickened liquids with similar consistency foods such as pudding, cream of wheat - PT/OT evaluation and treatment - evaluation on Tuesday - student services advisor consult for discharge planning with possible discharge tomorrow to [facility] Swing bed # Pneumonia - WBC 16.70, (84.5% N, increased monocytes) ; CXR indicates scattered, linear opacities of the bilateral mid, lower lungs # Lactic acidosis - resolved. - Continue levaquin 750mg IV Q48H per pharmacy dosing - BC x 2 NGTD x 2 days - CBC in am Discharge diagnoses: Chronic, stable conditions: # Hypertension - restart lisinopril 10mg on swing bed, allowed for permissive hypertension on acute hospital stay # Hyperlipidemia - continue simvastatin 20mg PO (consider holding if further elevation of LFT's) # Benign prostatic hypertrophy - continue flomax 0.4mg PO daily # Tobacco dependence - continue nicotine patch today to decrease possible nicotine withdrawal symptoms # Alcohol use - reports 20 drinks per week - continue thiamine 100mg PO daily, B vitamin complex daily HPI summary: Arthur is an 85yM patient brought to the ER today per EMS after highway patrol was dispatched to check on patient after his daughter had called him from [place] and reported patient was confused, unable to complete sentences with word salad and expressive aphasia. Daughter reported patient had complained of cold symptoms on Tuesday (08/17/21). Patient has 35 pack year history of smoking and drinks 20 alcoholic beverages on a weekly basis. Of note, EMS reported that the house was in disarray and moldy food was found on the stove. Patient's in November,. ED course: Patient confused, expressive aphasia and L sided weakness. NIH stroke scale = 8. WBC 23k, neutrophils 84.6%, Na 133, K 5.3, BUN 35, Creatinine 1.26, Alk phos 215. Trop 493. Lactic acid 2.2. CXR: cardiomegaly, vascular congestion; scattered linear opacities of bilateral mid, lower lungs suggestive of developing pneumonia. EKG: NSR w RBBB, no ST elevation. ASA 324mg given in ER. IV fluids started at 150ml/hr. [facility] neurology recommended palliative care for patient, declined admission. Hospital course: 08/21/21: Patient states "treat me" when clarifying code status for antibiotics, IV fluids versus comfort care. Expressive aphasia continues, mild left arm weakness. Vitals stable. Will trend troponin tonight. Initiating IV antibiotics for pneumonia. Tolerating thickened liquids and taking pills without difficulty. 08/22/21: No calls overnight. Patient spoke a full sentence to RN this am. He is frustrated at times due to expressive aphasia. Minimal verbalizations offered. Occasional cough. Lung sounds with mild crackles. Weakness to LUE somewhat improved from last night. Neuro checks stable. VSS. Lisinopril remains on hold. Will offer protein supplementation due to low albumin. Starting nicotine patch this morning due to current smoking status. 08/23/21: Received a phone call from nursing at 0110 indicating patient had gone into atrial fib with RVR with rates in the 170s to 180s. Patient has no known heart failure history, cardizem 15mg given bolus over 2 mintues followed by cardizem gtt at 5mg/hr. Patient became hypotensive which prompted the cardizem gtt to be stopped and NS bolus of 250ml x 3 were given with some improvement. Patient then started on amiodarone drip, patient tolerating this better with slight improvement in BP and gradual decrease in HR. Will obtain BNP in am, no echo on file. On rounds this am, patient denies SOB, CP, palpitations this morning. Left upper extremity weakness mildly improved today, expressive aphasia continues. Slight crackles to bilateral bases, O2 applied for comfort. HR irregularly irregular, remains in atrial fib, rates improved from early this morning; 120s - 130s. Amio gtt continues, addl metoprolol IV dosing and PO metoprolol succinate 12.5mg per Dr Shabazz. Mild abdominal tenderness to palpation, date of last BM unknown - will give bisacodyl suppository; added lipase which was normal 56. Possible hepatic congestion/chronic ETOH; AST 49, ALT 83, Alk phos 219. Blood pressure improved from earlier today > 100 systolic. Suspect some low readings obtained may have been rather positional as patient was side lying with the arm upon which the BP was obtained on top. Repeat labs ordered for am CBC, CMP, Mg, Phos 08/24/21: Patient converted to NSR at 1540 yesterday afternoon, confirmed by EKG. Continued amiodarone gtt x 1 hour and started amiodarone 100mg PO daily. Patient up in recliner on rounds this morning, brother and friend at bedside. Patient able to speak some words and one short sentence this morning. Awaiting speech evaluation prior to advancing fluids, diet. NO SOFT DIET until . Vitals stable. BC NGTD x2 days. WBC 16.70 with elevated monocytes. Na 136, K 4.5, BUN 29, AST 58, ALT 133, Alk phos 214, Albumin 2.34. Initiating CIWAA with librium PRN for signs of ETOH withdrawal. Started thiamine/vitamin B complex today. student services advisor working on discharge plan, both [facility] and [facility] have declined admission. Possible discharge tomorrow to [facility] for ST, PT, OT evaluation and treatment. 08/25/21: Patient seated on the edge of the bed wearing street clothes ready for discharge to [facility] this morning. Discharge and follow-up recommendations: - Discharge to [facility] for ST, PT, OT services - New medications at discharge: - Continue levaquin 750mg PO x 2 more doses Q48H 08/25/21 and 08/27/21 - Start coumadin, pharmacy to dose (was on enoxaparin 60mg subq daily during acute hospital stay) - Continue nicotine patch 21mcg daily - Continue amiodarone 200mg PO daily - Continue increased dose of metoprolol succinate 12.5mg PO BID - Continue thiamine 100mg PO daily - Continue B complex PO daily - Resume home lisinopril dose of 10mg PO daily, allowed permissive hypertension during acute stay - Follow-up with PCP upon swing bed discharge as appropriate. Hospitalization details: # FEN: NS 50ml/hr, electrolytes stable, thickened liquids # PPX: Continue lovenox 60mg subq BID # Code status: DNR/DNI # Emergency contact: Arnaud Kenny - updated at bedside # Disposition: Patient to maintain inpatient status today. Possible discharge to [facility] tomorrow for ST eval as well as PT, OT. - Discharge Data Discharge Date: 08/25/21 Discharge Disposition: DC/Tfer to Other 70 Condition: Good - Referral to Home Health Primary Care Physician: Carolyne Goyal MD - Patient Summary/Data Consults: Consultations 08/21/21 19:50 Consult to Case Management/Dye Range Operator [CONS] Routine 08/21/21 19:54 OT Evaluation and Treatment [CONS] Routine PT Evaluation and Treatment [CONS] Routine - Patient Instructions Diet: Mechanical Soft Diet, Other: Thickened liquids - diet as appropriate based on ST swallow evaluation Driving: Do Not Drive Showering/Bathing: May Shower - Discharge Plan *PRESCRIPTION DRUG MONITORING PROGRAM REVIEWED*: Not Applicable *COPY OF PRESCRIPTION DRUG MONITORING REPORT IN PATIENT KEM: Not Applicable Prescriptions/Med Rec: Warfarin Sliding Scale [Coumadin Sliding Scale] 1 each PO DAILY #30 tab levoFLOXacin [Levaquin] 750 mg PO Q48H #2 tab Home Medications: Home Meds Simvastatin 20 mg PO DAILY 08/21/21 [History] Tamsulosin HCl [Flomax] 0.4 mg PO DAILY 08/21/21 [History] lisinopriL [Lisinopril] 10 mg PO DAILY 08/21/21 [History] Amiodarone [Cordarone] 200 mg PO DAILY tablet 08/25/21 [Rx] Metoprolol Succinate [Toprol XL] 12.5 mg PO BID #0 tab.er 08/25/21 [Rx] Nicotine [Habitrol] 21 mg TRDERM DAILY #0 patch 08/25/21 [Rx] Tamsulosin [Flomax] 0.4 mg PO BEDTIME cap.er 08/25/21 [Rx] Thiamine [Vitamin B-1] 100 mg PO DAILY tablet 08/25/21 [Rx] Vitamin B Complex 1 each PO DAILY tablet 08/25/21 [Rx] Warfarin Sliding Scale [Coumadin Sliding Scale] 1 each PO DAILY #30 tab 08/25/21 [Rx] levoFLOXacin [Levaquin] 750 mg PO Q48H #2 tab 08/25/21 [Rx] Oxygen Therapy Mode: Room Air Referrals: [facility] [Outside] - General Info Functional Status: Reports: Pain Controlled, Tolerating Diet, Ambulating, Urinating. Denies: New Symptoms - Review of Systems General: Reports: No Symptoms HEENT: Reports: No Symptoms Pulmonary: Reports: Cough. Denies: Shortness of Breath Cardiovascular: Reports: No Symptoms Gastrointestinal: Reports: No Symptoms Genitourinary: Reports: Incontinence Musculoskeletal: Reports: No Symptoms Skin: Reports: No Symptoms Neurological: Reports: Trouble Speaking Psychiatric: Reports: Depression - Patient Data Vitals - Most Recent: Last Vital Signs Temp 97.7 F 08/25/21 06:53 Pulse 82 08/25/21 08:20 Resp 20 08/25/21 06:53 BP 136/92 H 08/25/21 08:20 Pulse Ox 97 08/25/21 06:53 Weight - Most Recent: 139 lb 6.4 oz I&O - Last 24 hours: Intake & Output 08/24/21 08/25/21 08/25/21 22:59 06:59 14:59 Intake Total 920 642 Balance 920 642 Lab Results - Last 24 hrs: Laboratory Results - last 24 hr 08/25/21 08/25/21 Range/Units 07:00 07:00 WBC 14.56 H (5.00-10.00) 10^3/uL RBC 3.00 L (4.50-6.00) 10^6/uL Hgb 9.6 L (13.0-17.0) g/dL Hct 29.0 L (40.0-52.0) % MCV 96.7 H (82.0-92.0) fL MCH 32.0 H (27.0-31.0) pg MCHC 33.1 (32.0-36.0) g/dL RDW 13.5 (11.5-14.5) % Plt Count 512 H (150-400) 10^3/uL MPV 8.6 (7.4-10.4) fL Immature Gran % (Auto) 0.8 (0.0-5.0) % Neut % (Auto) 81.7 H (50.0-70.0) % Lymph % (Auto) 5.3 L (20.0-40.0) % [place] % (Auto) 11.7 H (2.0-8.0) % Eos % (Auto) 0.4 L (1.0-3.0) % Baso % (Auto) 0.1 (0.0-1.0) % Neut # (Auto) 11.90 H (2.50-7.00) 10^3/uL Lymph # (Auto) 0.77 L (1.00-4.00) 10^3/uL [place] # (Auto) 1.71 H (0.10-0.80) 10^3/uL Eos # (Auto) 0.06 L (0.10-0.30) 10^3/uL Baso # (Auto) 0.01 (0.00-0.10) 10^3/uL Immature Gran # (Auto) 0.11 (0.00-0.50) 10^3/uL Sodium 136 (136-145) mmol/L Potassium 4.3 (3.5-5.1) mmol/L Chloride 104 (98-107) mmol/L Carbon Dioxide 23.7 (21.0-32.0) mmol/L Anion Gap 12.6 (5-15) mmol/L BUN 22 H (7-18) mg/dL Creatinine 0.96 (0.51-1.17) mg/dL Est Cr Clr Drug Dosing 52.14 mL/min Estimated GFR (MDRD) > 60 mL/min Glucose 99 (70-140) mg/dL Calcium 8.3 L (8.7-10.3) mg/dL Total Bilirubin 0.4 (0.2-1.0) mg/dL AST 68 H (15-37) U/L ALT 155 H (14-63) U/L Alkaline Phosphatase 221 H (46-116) U/L Total Protein 6.4 (6.4-8.2) g/dL Albumin 2.40 L (3.40-5.00) g/dL JENNIFER Results - Last 24 hrs: Microbiology 08/21/21 16:40 Aerobic Blood Culture - Preliminary Blood - Venous - Lab Draw NO GROWTH AFTER 3 DAYS Anaerobic Blood Culture - Preliminary NO GROWTH AFTER 3 DAYS 08/21/21 16:50 Aerobic Blood Culture - Preliminary Blood - Venous NO GROWTH AFTER 3 DAYS Anaerobic Blood Culture - Preliminary NO GROWTH AFTER 3 DAYS Med Orders - Current: Current Medications Amiodarone HCl (Amiodarone 200 Mg Tab) 200 mg PO DAILY [facility] Last Admin: 08/25/21 08:21 Dose: 200 mg Documented by: Atropine Sulfate (Atropine 0.1 Mg/Ml 10 Ml Syringe) 0 mg IVPUSH ASDIRECTED PRN PRN Reason: Heart. Chlordiazepoxide HCl (Chlordiazepoxide 10 Mg Cap) 10 mg PO Q8H PRN PRN Reason: Withdrawal Symptoms Enoxaparin Sodium (Enoxaparin 60 Mg/0.6 Ml Syringe) 60 mg SUBCUT Q12H [facility] Last Admin: 08/25/21 06:10 Dose: 60 mg Documented by: Epinephrine HCl (Epinephrine 1:10,000 1 Mg/10 Ml Syringe) 1 mg IVPUSH ASDIRECTED PRN PRN Reason: Heart. Sodium Chloride (Normal Saline) 1,000 mls @ 50 mls/hr IV ASDIRECTED [facility] Last Admin: 08/25/21 01:25 Dose: 50 mls/hr Documented by: Levofloxacin/Dextrose 500 mg/ (Premix) 100 mls @ 100 mls/hr IV Q48H [facility] Last Admin: 08/23/21 20:08 Dose: 100 mls/hr Documented by: Levofloxacin/Dextrose 250 mg/ (Premix) 50 mls @ 50 mls/hr IV Q48H [facility] Last Admin: 08/23/21 21:25 Dose: 50 mls/hr Documented by: Lidocaine HCl (Lidocaine 2% 100 Mg/5 Ml Syringe) 0 mg IVPUSH ASDIRECTED PRN PRN Reason: Heart. Metoprolol Succinate (Metoprolol Succinate 25 Mg Tab.Er) 12.5 mg PO BID [facility] Last Admin: 08/25/21 08:20 Dose: 12.5 mg Documented by: Nicotine (Nicotine 21 Mg/24 Hr Patch) 21 mg TRDERM DAILY [facility] Last Admin: 08/25/21 08:20 Dose: 21 mg Documented by: Nitroglycerin (Nitroglycerin 0.4 Mg Tab.Sl) 0.4 mg SL ASDIRECTED PRN PRN Reason: Heart. Simvastatin (Simvastatin 20 Mg Tab) 20 mg PO BEDTIME [facility] Last Admin: 08/24/21 20:19 Dose: Not Given Documented by: Sodium Chloride (Sodium Chloride 0.9% 10 Ml Syringe) 10 ml FLUSH Q8HR PRN PRN Reason: keep vein open Tamsulosin HCl (Tamsulosin 0.4 Mg Cap.Er) 0.4 mg PO BEDTIME [facility] Last Admin: 08/24/21 20:18 Dose: Not Given Documented by: Thiamine HCl (Thiamine 100 Mg Tab) 100 mg PO DAILY [facility] Last Admin: 08/25/21 08:19 Dose: 100 mg Documented by: Vitamin B Complex (Vitamin B Complex Tab) 1 each PO DAILY [facility] Last Admin: 08/25/21 08:19 Dose: 1 each Documented by: Discontinued Medications Aspirin (Aspirin 81 Mg Tab.Chew) 324 mg PO ONETIME ONE Stop: 08/21/21 15:44 Last Admin: 08/21/21 15:44 Dose: 324 mg Documented by: Bisacodyl (Bisacodyl 10 Mg Supp) 10 mg RECTAL ONETIME ONE Stop: 08/23/21 09:22 Last Admin: 08/23/21 09:53 Dose: 10 mg Documented by: Diltiazem HCl (Diltiazem 25 Mg/5 Ml Sdv) 15 mg IVPUSH NOW ONE Stop: 08/23/21 01:26 Last Admin: 08/23/21 01:36 Dose: 15 mg Documented by: Sodium Chloride (Normal Saline) 50 mls @ 200 mls/min IV ASDIRECTED [facility] Last Admin: 08/21/21 15:35 Dose: 200 mls/min Documented by: Sodium Chloride (Normal Saline) 1,000 mls @ 150 mls/hr IV .BOLUS ONE Stop: 08/21/21 22:09 Last Infusion: 08/21/21 20:30 Dose: 50 mls/hr Documented by: Levofloxacin/Dextrose 250 mg/ (Premix) 50 mls @ 50 mls/hr IV Q24H [facility] Levofloxacin/Dextrose 500 mg/ (Premix) 100 mls @ 100 mls/hr IV NOW ONE Stop: 08/21/21 19:14 Last Admin: 08/21/21 19:14 Dose: 100 mls/hr Documented by: Levofloxacin/Dextrose 250 mg/ (Premix) 50 mls @ 50 mls/hr IV ONETIME ONE Stop: 08/21/21 20:29 Last Admin: 08/21/21 20:31 Dose: 50 mls/hr Documented by: Diltiazem HCl 125 mg/ Sodium (Chloride) 125 mls @ 5 mls/hr IV TITRATE [facility]; Protocol Last Infusion: 08/23/21 02:29 Dose: 2.5 mg/hr, 2.5 mls/hr Documented by: Amiodarone HCl/Dextrose 360 mg (/ Premix) 200 mls @ 33.3 mls/hr IV ASDIRECTED [facility]; Protocol Stop: 08/23/21 17:30 Last Admin: 08/23/21 09:44 Dose: 33.3 mls/hr Documented by: Iopamidol (Iopamidol 755 Mg/Ml 100 Ml Bottle) 100 ml IV ONETIME ONE Stop: 08/21/21 15:35 Last Admin: 08/21/21 15:35 Dose: 100 ml Documented by: Metoprolol Succinate (Metoprolol Succinate 25 Mg Tab.Er) 12.5 mg PO DAILY [facility] Last Admin: 08/23/21 08:53 Dose: 12.5 mg Documented by: Metoprolol Succinate (Metoprolol Succinate 25 Mg Tab.Er) 12.5 mg PO ONETIME ONE Stop: 08/23/21 11:20 Last Admin: 08/23/21 11:26 Dose: 12.5 mg Documented by: Metoprolol Tartrate (Metoprolol Tartrate 5 Mg/5 Ml Sdv) 1 mg IVPUSH ONETIME ONE Stop: 08/23/21 09:28 Last Admin: 08/23/21 10:08 Dose: 1 mg Documented by: Metoprolol Tartrate (Metoprolol Tartrate 5 Mg/5 Ml Sdv) 1 mg IVPUSH ONETIME ONE Stop: 08/23/21 10:24 Last Admin: 08/23/21 10:25 Dose: 1 mg Documented by: Metoprolol Tartrate (Metoprolol Tartrate 5 Mg/5 Ml Sdv) 1 mg IVPUSH ONETIME ONE Stop: 08/23/21 10:39 Last Admin: 08/23/21 10:43 Dose: 1 mg Documented by: Metoprolol Tartrate (Metoprolol Tartrate 5 Mg/5 Ml Sdv) 1 mg IVPUSH ONETIME ONE Stop: 08/23/21 10:54 Last Admin: 08/23/21 11:03 Dose: 1 mg Documented by: - Exam Quality Assessment: Reports: DVT Prophylaxis (enoxaparin during acute stay, start coumadin on swing bed per pharmacy dosing). Denies: Supplemental Oxygen HEENT: Reports: Pupils Equal, Mucous Membr. Moist/[place] Neck: Reports: Supple, Trachea Midline Lungs: Reports: Normal Respiratory Effort, Decreased Breath Sounds, Rhonchi. Denies: Crackles, Wheezing Cardiovascular: Reports: Regular Rate, Regular Rhythm, No Murmurs GI/Abdominal Exam: Normal Bowel Sounds, Soft, Non-Tender, No Distention (Male) Exam: Deferred Rectal (Males) Exam: Deferred Back Exam: Reports: Normal Inspection Extremities: Normal Inspection, Normal Range of Motion, Non-Tender, No Pedal Edema, Normal Capillary Refill Skin: Reports: Warm, Dry, Other (scattered bruising) Neurological: Reports: No New Focal Deficit. Denies: Normal Speech (expressive aphasia continues, patient able to shake head yes/no and answer simple phrases at times) Psy/Mental Status: Reports: Alert, Depressed
== END 2021-08-25 11:00 | disposition swing bed (61) | DRG 64 ==
LOC: KA.ED 13:07 → UNDOADMIN 17:10 → KA.MS 17:10
PROVIDERS: ADMIT Nurse Practitioner Family; ATTEND Nurse Practitioner Family
DX: I63.9 Cerebral infarction, unspecified (principal); I21.4 Non-ST elevation (NSTEMI) myocardial infarction; D72.828 Other elevated white blood cell count; R29.706 NIHSS score 6; J18.9 Pneumonia, unspecified organism; E87.2 Acidosis; G83.24 Monoplegia of upper limb affecting left nondominant side; R47.01 Aphasia; Z66 Do not resuscitate; I48.91 Unspecified atrial fibrillation; I95.9 Hypotension, unspecified; I10 Essential (primary) hypertension; M19.90 Unspecified osteoarthritis, unspecified site; Z20.822 Contact with and (suspected) exposure to COVID-19; E78.5 Hyperlipidemia, unspecified; N40.0 Benign prostatic hyperplasia without lower urinary tract symptoms; F17.210 Nicotine dependence, cigarettes, uncomplicated; Z72.89 Other problems related to lifestyle; Z79.01 Long term (current) use of anticoagulants; Z79.899 Other long term (current) drug therapy; R29.708 NIHSS score 8
CPT/HCPCS: 36415; 70450; 70496; 70498; 71046; 80053; 80307; 81001; 83605; 83690; 83735; 83880; 84100; 84484; 85025; 85610; 85730; 87040; 93005; 99284; 99285-25; A9270-GY; J0282; J1650; J1956; J3490; J7030; Q9967; U0002